=== PATIENT | male | born 1975 | race Caucasian/White ===

== ENCOUNTER 2017-09-05 07:30 | Emergency (ER) | payer OTHER ==
[~2017-09-05] VITALS: Ht 182.9 cm; Wt 90.7 kg
[~2017-09-05 07:30] MED LIST: CEPH500 PO
== END 2017-09-05 09:23 | disposition home or self-care (01) ==
LOC: ER 07:30
DX: R07.81 Pleurodynia (principal); F17.200 Nicotine dependence, unspecified, uncomplicated; Z88.8 Allergy status to other drugs, medicaments and biological substances; W19.XXXA Unspecified fall, initial encounter
CPT/HCPCS: 71046; 96372; 99283; J1885

== ENCOUNTER 2018-08-26 19:09 | Emergency (ER) | payer OTHER ==
[~2018-08-26] VITALS: Ht 182.9 cm; Wt 88.5 kg
[2018-08-26] MEDS ORDERED: Norco 5-325 Ta1 EACH PO (20:49)
[2018-08-26] MEDS ORDERED: CRUTCH4 XX (20:49)
== END 2018-08-26 20:52 | disposition home or self-care (01) ==
LOC: ER 19:09
DX: S76.112A Strain of left quadriceps muscle, fascia and tendon, initial encounter (principal); F17.210 Nicotine dependence, cigarettes, uncomplicated; W22.8XXA Striking against or struck by other objects, initial encounter
CPT/HCPCS: 29505; 73564; 99283-25

== ENCOUNTER 2020-08-01 15:12 | Inpatient (IN) | payer OTHER ==
[~2020-08-01] VITALS: Ht 182.9 cm; Wt 91.4 kg
[~2020-08-01 15:12] MED LIST changes: +CRUTCH4 XX; +Norco 5-325 Ta1 EACH PO
[2020-08-01 15:34] LABS: BASOPHILS ABSOLUTE AUTO 0.06 K/mm3 (0.00-0.23); BASOPHILS PERCENT AUTO 1 % (0-2); EOSINOPHILS ABSOLUTE AUTO 0.02 K/mm3 (0.00-0.68); EOSINOPHILS PERCENT AUTO 0 % (0-6); Hemoglobin 17.3 g/dL (13.5-17.5); IMMATURE GRAN ABSOLUTE AUTO 0.03 K/mm3 (0.00-0.10); IMMATURE GRAN PERCENT AUTO 0 % (0-1); LYMPHOCYTES ABSOLUTE AUTO 0.69 K/mm3 (0.84-5.20); LYMPHOCYTES PERCENT AUTO 5 % (21-46); MONOCYTES ABSOLUTE AUTO 0.48 K/mm3 (0.16-1.47); MONOCYTES PERCENT AUTO 4 % (4-13); Mean Corpuscular HGB 30.3 pg (26.0-34.0); Mean Corpuscular HGB Conc 33.9 g/dL (31.5-36.5); Mean Corpuscular Volume 89 fL (80-100); Mean Platelet Volume 9.2 fL (9.1-12.4); NEUTROPHILS PERCENT AUTO 90 % (41-73); Platelet Count 217 K/mm3 (150-400); RDW Coefficient Variation 12.6 % (11.7-14.2); RDW Standard Deviation 41.4 fL (35.1-46.3); Red Blood Cell Count 5.71 M/mm3 (4.30-5.90); White Blood Cell Count 12.88 K/mm3 (4.00-11.30)
[2020-08-01 15:55] LABS: Alanine Aminotransfer (ALT/SGP 21 U/L (12-78); Albumin, Blood 3.7 g/dL (3.4-5.0); Albumin/Globulin Ratio 0.9 (0.8-1.8); Alk Phos 96 U/L (50-136); Anion Gap 5 mmol/L (6-16); Aspartate Aminotrans (AST/SGOT 23 U/L (12-37); Bilirubin, Total 0.8 mg/dL (0.1-1.0); Blood Urea Nitrogen 7 mg/dL (8-24); CO2, Blood 24 mmol/L (21-32); Chloride, Blood 106 mmol/L (98-108); Creatinine, Blood 0.78 mg/dL (0.60-1.20); Globulin, Blood 3.9 g/dL (2.2-4.0); Glomerular Filtration Rate >60 (60-); Glucose, Blood 104 mg/dL (70-99); Potassium, Blood 4.1 mmol/L (3.5-5.5); Sodium, Blood 135 mmol/L (136-145); Total Protein, Blood 7.6 g/dL (6.4-8.2)
[2020-08-01 18:18] LABS: Influenza A, PCR Negative (NEGATIVE); Influenza B, PCR Negative (NEGATIVE); Resp Syncytial Virus, PCR Negative (NEGATIVE); SARS-Cov-2 (COVID-19) PCR, MMC Negative (NEGATIVE)
[2020-08-02 04:37] LABS: BASOPHILS ABSOLUTE AUTO 0.03 K/mm3 (0.00-0.23); BASOPHILS PERCENT AUTO 0 % (0-2); EOSINOPHILS PERCENT AUTO 0 % (0-6); Hematocrit 46.8 % (37.0-53.0); Hemoglobin 15.7 g/dL (13.5-17.5); IMMATURE GRAN ABSOLUTE AUTO 0.05 K/mm3 (0.00-0.10); IMMATURE GRAN PERCENT AUTO 0 % (0-1); LYMPHOCYTES ABSOLUTE AUTO 0.64 K/mm3 (0.84-5.20); LYMPHOCYTES PERCENT AUTO 5 % (21-46); MONOCYTES PERCENT AUTO 2 % (4-13); Mean Corpuscular HGB 29.8 pg (26.0-34.0); Mean Corpuscular HGB Conc 33.5 g/dL (31.5-36.5); Mean Corpuscular Volume 89 fL (80-100); Mean Platelet Volume 9.9 fL (9.1-12.4); NEUTROPHILS ABSOLUTE AUTO 12.67 K/mm3 (1.96-9.15); NEUTROPHILS PERCENT AUTO 93 % (41-73); Platelet Count 195 K/mm3 (150-400); RDW Coefficient Variation 12.9 % (11.7-14.2); RDW Standard Deviation 42.3 fL (35.1-46.3); Red Blood Cell Count 5.27 M/mm3 (4.30-5.90); White Blood Cell Count 13.69 K/mm3 (4.00-11.30)
[2020-08-02 04:55] LABS: Alanine Aminotransfer (ALT/SGP 17 U/L (12-78); Albumin/Globulin Ratio 0.8 (0.8-1.8); Alk Phos 65 U/L (50-136); Anion Gap 7 mmol/L (6-16); Aspartate Aminotrans (AST/SGOT 15 U/L (12-37); Bilirubin, Total 0.8 mg/dL (0.1-1.0); Blood Urea Nitrogen 9 mg/dL (8-24); Bun/Creatinine Ratio 11.3 (12.0-20.0); CO2, Blood 24 mmol/L (21-32); Calcium, Blood 8.2 mg/dL (8.5-10.1); Chloride, Blood 107 mmol/L (98-108); Globulin, Blood 3.6 g/dL (2.2-4.0); Glomerular Filtration Rate >60 (60-); Glucose, Blood 126 mg/dL (70-99); Potassium, Blood 3.7 mmol/L (3.5-5.5); Sodium, Blood 138 mmol/L (136-145); Total Protein, Blood 6.6 g/dL (6.4-8.2)
--- NOTE | 2020-08-02 05:32 | NUR ---
SHIFT SUMMARY S/P APPENDICITIS, A/O X4, VSS, PAIN CONTROLLED VIA DILAUDID LASER OPERATOR, NPO AT ADMISSION, DENIES N/V, VOIDING WELL W/ BEDSIDE URINAL. CALL LIGHT IN REACH, WILL CONTINUE TO MONITOR AND REPORT TO ONCOMING DAY RN.
--- NOTE | 2020-08-02 07:40 | NUR ---
pt resting wakes to verbal stimuli pt reports pain lower left abd 4/10 winces with any movement in the bed stated that he had been having some nausea but it was better
--- NOTE | 2020-08-02 09:58 | NUR ---
dr burr by to see pt ok to adv to cl diet if skyler
--- NOTE | 2020-08-02 12:05 | NUR ---
pt has alisha ballesteros for lunch told pt to go slow and to call if any nausea and to stop eating if he gets pain
--- NOTE | 2020-08-02 14:12 | NUR ---
pt had small amt of jello and h20 only
--- NOTE | 2020-08-02 17:26 | NUR ---
PT RESTING WAKES TO VERBAL STIMULI MEDS GIVEN SCHED PT JAROCHO GIVEN A JELLO
[2020-08-03 06:12] LABS: BASOPHILS ABSOLUTE AUTO 0.03 K/mm3 (0.00-0.23); BASOPHILS PERCENT AUTO 0 % (0-2); EOSINOPHILS ABSOLUTE AUTO 0.01 K/mm3 (0.00-0.68); EOSINOPHILS PERCENT AUTO 0 % (0-6); Hematocrit 45.3 % (37.0-53.0); Hemoglobin 15.2 g/dL (13.5-17.5); IMMATURE GRAN ABSOLUTE AUTO 0.12 K/mm3 (0.00-0.10); IMMATURE GRAN PERCENT AUTO 1 % (0-1); LYMPHOCYTES ABSOLUTE AUTO 0.65 K/mm3 (0.84-5.20); LYMPHOCYTES PERCENT AUTO 5 % (21-46); MONOCYTES ABSOLUTE AUTO 0.38 K/mm3 (0.16-1.47); MONOCYTES PERCENT AUTO 3 % (4-13); Mean Corpuscular HGB 29.9 pg (26.0-34.0); Mean Corpuscular HGB Conc 33.6 g/dL (31.5-36.5); Mean Corpuscular Volume 89 fL (80-100); Mean Platelet Volume 10.2 fL (9.1-12.4); NEUTROPHILS ABSOLUTE AUTO 13.09 K/mm3 (1.96-9.15); NEUTROPHILS PERCENT AUTO 92 % (41-73); Platelet Count 187 K/mm3 (150-400); RDW Coefficient Variation 12.9 % (11.7-14.2); RDW Standard Deviation 42.3 fL (35.1-46.3); Red Blood Cell Count 5.08 M/mm3 (4.30-5.90); White Blood Cell Count 14.28 K/mm3 (4.00-11.30)
--- NOTE | 2020-08-03 06:16 | NUR ---
SHIFT SUMMARY S/P PERFERATED SIG COLON, A/O X4, VSS, TOLERATING CLEAR FLUIDS AND SMALL AMOUNTS OF JELLO W/ INTERMITTENT NAUSEA, PAIN CONTROLLED W/ DILAUDID STAR ROUTE MAIL DRIVER, VOIDING WELL W/ BEDSIDE URINAL, CURRENTLY ON Q6 ABX TX PENDING POSSIBLE SURGERY TO BE DETERMINED BY SURGEON RECOMMENDATION. CALL LIGHT IN REACH, WILL CONTINUE TO MONITOR AND REPORT TO ONCOMING DAY RN.
[2020-08-03 06:42] LABS: Anion Gap 7 mmol/L (6-16); Blood Urea Nitrogen 12 mg/dL (8-24); Bun/Creatinine Ratio 14.3 (12.0-20.0); CO2, Blood 26 mmol/L (21-32); Calcium, Blood 8.5 mg/dL (8.5-10.1); Chloride, Blood 103 mmol/L (98-108); Creatinine, Blood 0.84 mg/dL (0.60-1.20); Glomerular Filtration Rate >60 (60-); Glucose, Blood 119 mg/dL (70-99); Potassium, Blood 3.8 mmol/L (3.5-5.5); Sodium, Blood 136 mmol/L (136-145)
--- NOTE | 2020-08-04 04:11 | NUR ---
SHIFT SUMMARY PT RESTED WELL T/O NIGHT. AAOX4. DISCOMFORT CONTROLLED WITH DILAUDID VASCULAR TECHNOLOGIST SONOGRAPHER. MILD NAUSEA T/O NIGHT, PT REFUSING NEED OF MEDICATION, NO EMESIS. BTX4 HYPERACTIVE THIS SHIFT WITH PT REPORTING "STOMACH RUMBLING," DENIES FLATUS OR BM. IVF + ABX PER ORDERS. TOLERATING SIPS CLEARS + ICE CHIPS. MODERATE AMOUNT DARK YELLOW URINE. PT CURRENTLY RESTING IN BED WITH CALL LIGHT IN REACH.
[2020-08-04 05:28] LABS: BASOPHILS ABSOLUTE AUTO 0.01 K/mm3 (0.00-0.23); BASOPHILS PERCENT AUTO 0 % (0-2); EOSINOPHILS PERCENT AUTO 0 % (0-6); Hematocrit 42.7 % (37.0-53.0); Hemoglobin 14.4 g/dL (13.5-17.5); IMMATURE GRAN ABSOLUTE AUTO 0.13 K/mm3 (0.00-0.10); IMMATURE GRAN PERCENT AUTO 1 % (0-1); LYMPHOCYTES ABSOLUTE AUTO 0.84 K/mm3 (0.84-5.20); LYMPHOCYTES PERCENT AUTO 6 % (21-46); MONOCYTES ABSOLUTE AUTO 0.48 K/mm3 (0.16-1.47); MONOCYTES PERCENT AUTO 4 % (4-13); Mean Corpuscular HGB 30.1 pg (26.0-34.0); Mean Corpuscular HGB Conc 33.7 g/dL (31.5-36.5); Mean Corpuscular Volume 89 fL (80-100); Mean Platelet Volume 9.6 fL (9.1-12.4); NEUTROPHILS ABSOLUTE AUTO 11.79 K/mm3 (1.96-9.15); NEUTROPHILS PERCENT AUTO 89 % (41-73); Platelet Count 157 K/mm3 (150-400); RDW Coefficient Variation 12.7 % (11.7-14.2); Red Blood Cell Count 4.78 M/mm3 (4.30-5.90); White Blood Cell Count 13.25 K/mm3 (4.00-11.30)
--- NOTE | 2020-08-04 08:28 | NUR ---
ASSESSMENT PT WITH INCREASED PAIN RLQ THIS AM, INCREASED ABDOMINAL DISTENTION FROM YESTERDAY AM ASSESSMENT. PT RATES PAIN 7/10, IS USING JUKEBOX OPERATOR AND DENIES NEED FOR RESCUE DOSE IVP DILAUDID. BOWEL TONES HYPOACTIVE AT TIME OF ASSESSMENT ALTHOUGH PT STATES THAT T/O NIGHT HE WAS FEELING "RUMBLING", DENIES FLATUS OR BM. DENIES N/V AT THIS TIME, PT NPO. CONTINUES TO BE HYPERTENSIVE, DENIES HX OF HTN.
--- NOTE | 2020-08-05 05:48 | NUR ---
SHIFT SUMMARY PT RESTED INFREQUENTLY T/O NIGHT. AAOX4. SMALL AMOUNT ICE CHIPS THIS SHIFT. DISCOMFORT CONTROLLED WITH DILAUDID HOME HEALTH OUTREACH COORDINATOR + 1MG IV DILAUDID PUSH X1 FOR BREAKTHROUGH. NAUSEA CONTROLLED WITH X1 ZOFRAN, NO EMESIS. IVF PER ORDERS. DARK/SAL URINE NOTED. PT CURRENTLY RESTING IN BED WITH CALL LIGHT IN REACH.
[2020-08-05 11:27] LABS: Prothrombin Time Results 10.7 Sec (9.7-11.5)
--- NOTE | 2020-08-05 15:19 | NUR ---
PT AT CT.
--- NOTE | 2020-08-05 17:30 | NUR ---
SUMMARY PT HAD CT GUIDED DRAIN PLACEMENT ON L ABD, TOLERATED FAIRLY WELL, HAD SOME NAUSEA TODAY, REPORTS HAVING ADEQUATE PAIN CONTROL WITH WINDOW SHADE RING COVERER, SLEPT OFF AND ON MOST OF THE DAY, NO ACUTE CHANGES THIS SHIFT.
--- NOTE | 2020-08-06 06:44 | NUR ---
POD 1 S/P CT GUIDED DRAIN PLACEMENT. PT VSS, BP REMAINS ELEVATED 170'S-100'S. PT DENIED CP/PRESSURE. PT REP PAIN MGD W/SENIOR SOFTWARE QUALITY ENGINEER, STATES LESS PAIN SINCE DRAIN PLACED. URESIL DRAIN W/CLEMONS DRNG. PT CONT TO C/O NAUSEA, MED W/ZOFRAN W/REP RELIEF, NO EMESIS THIS SHIFT. PT REP NO FLATUS. PT UP INDEP IN ROOM, IVF AND ABX CONT PER ORDERS.
[2020-08-06 07:15] LABS: BASOPHILS ABSOLUTE AUTO 0.03 K/mm3 (0.00-0.23); BASOPHILS PERCENT AUTO 0 % (0-2); EOSINOPHILS ABSOLUTE AUTO 0.05 K/mm3 (0.00-0.68); EOSINOPHILS PERCENT AUTO 1 % (0-6); Hematocrit 42.9 % (37.0-53.0); Hemoglobin 14.6 g/dL (13.5-17.5); IMMATURE GRAN ABSOLUTE AUTO 0.06 K/mm3 (0.00-0.10); IMMATURE GRAN PERCENT AUTO 1 % (0-1); LYMPHOCYTES ABSOLUTE AUTO 0.94 K/mm3 (0.84-5.20); LYMPHOCYTES PERCENT AUTO 9 % (21-46); MONOCYTES PERCENT AUTO 8 % (4-13); Mean Corpuscular Volume 88 fL (80-100); Mean Platelet Volume 9.5 fL (9.1-12.4); NEUTROPHILS ABSOLUTE AUTO 8.41 K/mm3 (1.96-9.15); NEUTROPHILS PERCENT AUTO 82 % (41-73); Platelet Count 189 K/mm3 (150-400); RDW Coefficient Variation 12.7 % (11.7-14.2); RDW Standard Deviation 41.1 fL (35.1-46.3); Red Blood Cell Count 4.87 M/mm3 (4.30-5.90); White Blood Cell Count 10.29 K/mm3 (4.00-11.30)
--- NOTE | 2020-08-06 12:17 | NUR ---
DR. PARIKH HERE TO SEE PT, NOTIFIED REGARDING PT'S HIGH BLOOD PRESSURES, HOSPITALIST TO CONSULT, PT NOW OOB TO CHAIR, REPORTS TOLERATING CLEAR LIQUIDS BETTER TODAY.
[2020-08-06 16:29] LABS: Anion Gap 6 mmol/L (6-16); Blood Urea Nitrogen 9 mg/dL (8-24); Bun/Creatinine Ratio 14.2 (12.0-20.0); CO2, Blood 27 mmol/L (21-32); Chloride, Blood 103 mmol/L (98-108); Creatinine, Blood 0.63 mg/dL (0.60-1.20); Glomerular Filtration Rate >60 (60-); Glucose, Blood 114 mg/dL (70-99); Magnesium, Blood 2.3 mg/dL (1.6-2.4); Potassium, Blood 3.3 mmol/L (3.5-5.5); Sodium, Blood 136 mmol/L (136-145)
[2020-08-06 17:20] LABS: Source, Urine Clean Catch
[2020-08-06 17:24] LABS: Appearance, Urine Cloudy (Clear); Bilirubin, Urine Neg (Neg); Blood, Urine Neg (Neg); Color, Urine Yellow (P-Yellow); Glucose Qualitative, Urine Neg (Neg); Ketones, Urine Neg (Neg); Leukocyte Esterase, Urine Neg (Neg); Nitrite, Urine Neg (Neg); Protein, Urine 1+ (Neg); Urobilinogen, Urine NORM (Normal)
--- NOTE | 2020-08-06 17:32 | NUR ---
SUMMARY REPORTS FEELING "BETTER" TODAY, STARTED SMALL AMOUNTS OF FULL LIQUIDS, TOLERATED FAIRLY WELL, DENIES ANY NAUSEA, OOB TO CHAIR AND TO AMBULATE IN ROOM, URESIL DRAIN CONT. TO HAVE CLEMONS DRAINAGE, CONT. TO HAVE HIGH BP, STARTED ON HYDRALAZINE PO BY ELVIRA ENRIQUEZ, NO OTHER CHANGES THIS SHIFT.
[2020-08-06 17:43] LABS: Amorphous Heavy (0-Heavy); Bacteria Rare /hpf; Red Blood Cells, Urine 0-2 /hpf (0-2); Squamous Epithelial Cells Not Seen /hpf (Few); White Blood Cells, Urine 0-2 /hpf (0-5)
--- NOTE | 2020-08-07 06:33 | NUR ---
PT HAD NO ACUTE CHANGES T/O NIGHT. BP ELEVATED THIS AM, PRN HYDRALAZINE GIVEN PER EMAR. PT DENIED CP/PRESSURE/SOB. URESIL DRAINED APPX 10ML THICK BROWN DRNG. ABD REMIANS FIRM/DISTENDED, BT HYPO. PT REP ABD DOES FEEL A LITTLE LESS DISTENDED TO HIM. PT REP PASSING FLATUS, REP LESS NAUSEA THIS SHIFT, ZOFRAN GIVEN X1 W/REP RELIEF. PT REP PAIN JUAN DANIEL W/CATTLE INSPECTOR. PT ENC TO AMBULATE OUTSIDE OF ROOM
--- NOTE | 2020-08-07 18:24 | NUR ---
SHIFT SUMMARY PT HAS DONE WELL THIS SHIFT. DIET ADVANCED, PT TOOK SMALL AMOUNTS PO T/O SHIFT WITH NO C/O N/V. PAIN CONTINUES TO BE MANAGED WITH DILAUDID TOBACCO WRAPPING MACHINE TENDER. PT UP TO SHOWER. DRAIN WITH SMALL AMT PURULENT DRAINAGE THIS SHIFT. PLAN TO CONTINUE IV ABX AT THIS TIME.
[2020-08-08 04:32] LABS: BASOPHILS ABSOLUTE AUTO 0.05 K/mm3 (0.00-0.23); BASOPHILS PERCENT AUTO 1 % (0-2); EOSINOPHILS ABSOLUTE AUTO 0.19 K/mm3 (0.00-0.68); EOSINOPHILS PERCENT AUTO 2 % (0-6); Hematocrit 42.3 % (37.0-53.0); Hemoglobin 14.5 g/dL (13.5-17.5); IMMATURE GRAN ABSOLUTE AUTO 0.13 K/mm3 (0.00-0.10); IMMATURE GRAN PERCENT AUTO 2 % (0-1); LYMPHOCYTES ABSOLUTE AUTO 1.34 K/mm3 (0.84-5.20); LYMPHOCYTES PERCENT AUTO 15 % (21-46); MONOCYTES ABSOLUTE AUTO 0.86 K/mm3 (0.16-1.47); MONOCYTES PERCENT AUTO 10 % (4-13); Mean Corpuscular HGB 29.4 pg (26.0-34.0); Mean Corpuscular HGB Conc 34.3 g/dL (31.5-36.5); Mean Corpuscular Volume 86 fL (80-100); Mean Platelet Volume 9.6 fL (9.1-12.4); NEUTROPHILS ABSOLUTE AUTO 6.17 K/mm3 (1.96-9.15); NEUTROPHILS PERCENT AUTO 71 % (41-73); Platelet Count 245 K/mm3 (150-400); RDW Coefficient Variation 12.5 % (11.7-14.2); RDW Standard Deviation 39.2 fL (35.1-46.3); Red Blood Cell Count 4.94 M/mm3 (4.30-5.90); White Blood Cell Count 8.74 K/mm3 (4.00-11.30)
[2020-08-08 04:46] LABS: Albumin, Blood 2.1 g/dL (3.4-5.0); Anion Gap 7 mmol/L (6-16); Blood Urea Nitrogen 6 mg/dL (8-24); Bun/Creatinine Ratio 8.8 (12.0-20.0); CO2, Blood 26 mmol/L (21-32); Calcium, Blood 8.1 mg/dL (8.5-10.1); Chloride, Blood 101 mmol/L (98-108); Creatinine, Blood 0.68 mg/dL (0.60-1.20); Glomerular Filtration Rate >60 (60-); Glucose, Blood 91 mg/dL (70-99); Phosphorus, Blood 3.6 mg/dL (2.5-4.9); Potassium, Blood 3.4 mmol/L (3.5-5.5); Sodium, Blood 134 mmol/L (136-145)
--- NOTE | 2020-08-08 06:34 | NUR ---
SHIFT SUMMARY POD#3 DRAIN PLACEMENT. AAOX4. DISCOMFORT CONTROLLED WITH DILAUDID BEHAVIOR INTERVENTIONIST. NO NAUSEA/EMESIS. DRAIN WITH 20cc DARK LIQUID BROWN OUT. IV TKO + ABX. HTN NOTED THIS SHIFT, APRESOLINE GIVEN PER ORDERS. PT RESTED WELL T/O NIGHT WITH CALL LIGHT IN REACH. ENCOUAGE AMBULATION TODAY.
[2020-08-08] MEDS ORDERED: AMOCLA875 PO (12:17)
[2020-08-08] MEDS ORDERED: HYDR1TAB94 PO (12:18)
[2020-08-08] MEDS ORDERED: AMLO10 PO (13:04)
[2020-08-08] MEDS ORDERED: HYDCHL25 PO (13:04)
--- NOTE | 2020-08-08 16:06 | NUR ---
DISCHARGED TO HOME WITH DRAIN IN [place]. PT STATES HE HAS NO CONCERNS REGARDING EMPTYING DRAIN AND RECORDING I/O
== END 2020-08-08 16:08 | disposition home or self-care (01) | DRG 392 ==
LOC: ER 15:12 → ERHOLD 20:47 → SURS 20:47
PROVIDERS: Emergency Medicine; Internal Medicine; Nurse Practitioner Acute Care; ADMIT Surgery
PROC: 0W9J30Z Drainage of Pelvic Cavity with Drainage Device, Percutaneous Approach (ICD-10-PCS; principal; 2020-08-05)
DX: K57.20 Diverticulitis of large intestine with perforation and abscess without bleeding (principal); K56.7 Ileus, unspecified; I10 Essential (primary) hypertension; F17.210 Nicotine dependence, cigarettes, uncomplicated; E87.6 Hypokalemia; Z20.822 Contact with and (suspected) exposure to COVID-19
CPT/HCPCS: 0241U; 36415; 49406; 74177; 80048; 80053; 80069; 81001; 83605; 83690; 83735; 83880; 85025; 85610; 85730; 87070; 87075; 87205; 93005; 93010; 96361; 96365-59; 96366; 96375; 96376; 99285-25; A9270; J1170; J1650; J2405; J2543; J7030; J7050; J7120; Q9967

== ENCOUNTER 2020-08-11 22:11 | Inpatient (IN) | payer OTHER ==
[~2020-08-11] VITALS: Ht 182.9 cm; Wt 92.5 kg
[~2020-08-11 22:11] MED LIST changes: +AMLO10 PO; +AMOCLA875 PO; +HYDCHL25 PO; +HYDR1TAB94 PO
[2020-08-11 22:59] LABS: BASOPHILS ABSOLUTE AUTO 0.11 K/mm3 (0.00-0.23); BASOPHILS PERCENT AUTO 1 % (0-2); EOSINOPHILS ABSOLUTE AUTO 0.17 K/mm3 (0.00-0.68); EOSINOPHILS PERCENT AUTO 1 % (0-6); Hematocrit 33.1 % (37.0-53.0); Hemoglobin 11.1 g/dL (13.5-17.5); IMMATURE GRAN ABSOLUTE AUTO 0.35 K/mm3 (0.00-0.10); IMMATURE GRAN PERCENT AUTO 2 % (0-1); LYMPHOCYTES ABSOLUTE AUTO 1.89 K/mm3 (0.84-5.20); LYMPHOCYTES PERCENT AUTO 10 % (21-46); MONOCYTES ABSOLUTE AUTO 0.94 K/mm3 (0.16-1.47); MONOCYTES PERCENT AUTO 5 % (4-13); Mean Corpuscular HGB 29.9 pg (26.0-34.0); Mean Corpuscular HGB Conc 33.5 g/dL (31.5-36.5); Mean Corpuscular Volume 89 fL (80-100); Mean Platelet Volume 9.6 fL (9.1-12.4); NEUTROPHILS ABSOLUTE AUTO 15.28 K/mm3 (1.96-9.15); NEUTROPHILS PERCENT AUTO 82 % (41-73); Platelet Count 503 K/mm3 (150-400); RDW Coefficient Variation 12.8 % (11.7-14.2); RDW Standard Deviation 42.2 fL (35.1-46.3); Red Blood Cell Count 3.71 M/mm3 (4.30-5.90); White Blood Cell Count 18.74 K/mm3 (4.00-11.30)
[2020-08-11 23:12] LABS: Alanine Aminotransfer (ALT/SGP 48 U/L (12-78); Albumin, Blood 2.6 g/dL (3.4-5.0); Albumin/Globulin Ratio 0.7 (0.8-1.8); Alk Phos 68 U/L (50-136); Anion Gap 9 mmol/L (6-16); Aspartate Aminotrans (AST/SGOT 23 U/L (12-37); Bilirubin, Total 0.6 mg/dL (0.1-1.0); Blood Urea Nitrogen 7 mg/dL (8-24); Bun/Creatinine Ratio 8.7 (12.0-20.0); CO2, Blood 24 mmol/L (21-32); Calcium, Blood 7.8 mg/dL (8.5-10.1); Chloride, Blood 102 mmol/L (98-108); Creatinine, Blood 0.81 mg/dL (0.60-1.20); Globulin, Blood 3.9 g/dL (2.2-4.0); Glomerular Filtration Rate >60 (60-); Glucose, Blood 185 mg/dL (70-99); Sodium, Blood 135 mmol/L (136-145); Total Protein, Blood 6.5 g/dL (6.4-8.2)
[2020-08-12 00:18] LABS: International Normalized Ratio 1.01; Prothrombin Time Results 10.8 Sec (9.7-11.5)
[2020-08-12 00:35] LABS: Calcium, Ionized (POC) 1.01 mmol/L (1.10-1.46); Chloride (POC) 101 mmol/L (98-108); Creatinine (POC) 0.8 mg/dL (0.8-1.3); Glucose (ISTAT POC) 159 mg/dL (70-99); Hemoglobin (POC) 8.2 g/dL (13.5-17.5); Potassium (POC) 4.2 mmol/L (3.5-5.5); Sodium (POC) 133 mmol/L (135-148); Total CO2 (POC) 19 mmol/L (21-32)
[2020-08-12 00:36] LABS: Hematocrit 25.6 % (37.0-53.0); Hemoglobin 8.3 g/dL (13.5-17.5)
[2020-08-12 03:01] LABS: Hematocrit 27.2 % (37.0-53.0); Mean Platelet Volume 9.1 fL (9.1-12.4); Platelet Count 258 K/mm3 (150-400)
[2020-08-12 03:12] LABS: Calcium, Blood 6.3 mg/dL (8.5-10.1); Magnesium, Blood 1.6 mg/dL (1.6-2.4)
[2020-08-12 03:17] LABS: International Normalized Ratio 1.11; Prothrombin Time Results 11.8 Sec (9.7-11.5)
[2020-08-12 05:26] LABS: BASOPHILS ABSOLUTE AUTO 0.11 K/mm3 (0.00-0.23); BASOPHILS PERCENT AUTO 0 % (0-2); EOSINOPHILS ABSOLUTE AUTO 0.01 K/mm3 (0.00-0.68); EOSINOPHILS PERCENT AUTO 0 % (0-6); Hematocrit 29.5 % (37.0-53.0); Hemoglobin 10.2 g/dL (13.5-17.5); IMMATURE GRAN ABSOLUTE AUTO 0.85 K/mm3 (0.00-0.10); IMMATURE GRAN PERCENT AUTO 3 % (0-1); LYMPHOCYTES ABSOLUTE AUTO 1.44 K/mm3 (0.84-5.20); LYMPHOCYTES PERCENT AUTO 5 % (21-46); MONOCYTES ABSOLUTE AUTO 1.34 K/mm3 (0.16-1.47); MONOCYTES PERCENT AUTO 5 % (4-13); Mean Corpuscular HGB 30.4 pg (26.0-34.0); Mean Corpuscular HGB Conc 34.6 g/dL (31.5-36.5); Mean Corpuscular Volume 88 fL (80-100); Mean Platelet Volume 9.3 fL (9.1-12.4); NEUTROPHILS ABSOLUTE AUTO 23.89 K/mm3 (1.96-9.15); NEUTROPHILS PERCENT AUTO 87 % (41-73); Platelet Count 314 K/mm3 (150-400); RDW Coefficient Variation 13.8 % (11.7-14.2); RDW Standard Deviation 44.5 fL (35.1-46.3); Red Blood Cell Count 3.35 M/mm3 (4.30-5.90); White Blood Cell Count 27.64 K/mm3 (4.00-11.30)
--- NOTE | 2020-08-12 05:33 | NUR ---
OR PLACED L RADIAL CENTRAL LINE. SPO2 ON L POINTER FINGER. GOOD WAVE FORM. FINGERS ARE WARM AND CAP REFILL <3 SEC
--- NOTE | 2020-08-12 05:34 | NUR ---
PT TO ICU 13 FROM OR. THIS NURSE IN OR WITH PT FOR SPLENECTOMY. PT EBL IS 5L. RECEIVED 2100MLS LR, 2L NS, 3U PRBCS. ST IN THE 110S, SBP STABLE IN THE 120S. PT IS AROUSABLE TO VERBAL STIMULI AND IS A&O. PT HAS A MIDLINE ABD INCISION WITH KIANA DRESSING. A ROBERTA DRAIN TO RQ DRAINING MOD AMT OF BLOOD. DRAIN TO LLQ DRAINING DARK GREEN/BROWN SUBSTANCE (PT WAS RECENTLY IN ED WITH DIVERTICULITIS ULCER. DRAIN PLACED AT THAT ADMISSION). PT HAS NGT TO LIS. 2 PIV IN BILAT ACS. L RADIAL ART LINE PLACED IN OR- NOT SUTURED IN. ZEROED ONCE TO ICU RM. WILL PASS REPORT TO ONCOMING RN
[2020-08-12 05:55] LABS: Alanine Aminotransfer (ALT/SGP 39 U/L (12-78); Albumin/Globulin Ratio 0.7 (0.8-1.8); Alk Phos 52 U/L (50-136); Anion Gap 8 mmol/L (6-16); Aspartate Aminotrans (AST/SGOT 25 U/L (12-37); Bilirubin, Total 1.9 mg/dL (0.1-1.0); Blood Urea Nitrogen 8 mg/dL (8-24); Bun/Creatinine Ratio 12.8 (12.0-20.0); CO2, Blood 22 mmol/L (21-32); Calcium, Blood 6.7 mg/dL (8.5-10.1); Chloride, Blood 108 mmol/L (98-108); Creatinine, Blood 0.63 mg/dL (0.60-1.20); Glomerular Filtration Rate >60 (60-); Glucose, Blood 184 mg/dL (70-99); Potassium, Blood 4.6 mmol/L (3.5-5.5); Sodium, Blood 138 mmol/L (136-145)
[2020-08-12 06:01] LABS: Fibrinogen 326 mg/dL (170-430)
--- NOTE | 2020-08-12 08:20 | NUR ---
CARE ASSUMED CARE AND REPORT ASSUMED FROM IRINEO JUAREZ. PT SLEEPING BUT EASILY AROUSES WHEN SPOKEN TO. HE IS DUSKY APPEARING. A/O X 3, FLAT AFFECT, CALM AND COOPERATIVE. SINUSTACH, HR 110-120. BP WNL. ART LINE IN L WRIST, NO SUTURES BUT IS SECURED WITH TAPE. GOOD WAVE FORM AND PLETH. AFEBRILE. LUNG SOUNDS CLEAR THROUGHOUT; SPO2 97% ON RA. NGT SECURED AND ATTACHED TO LIWS; GREEN, BILIOUS OUTPUT. ROBERTA DRAIN SECURED TO R SIDE, SEROSANGINOUS OUTPUT. CONSTAVAC ATTACHED AND SECURED TO LLQ ABDOMEN; BROWN OUTPUT. DILAUDID CLINIC ADMINISTRATOR; PT AWARE OF HOW TO USE BUTTON. DILAUDID DOSE IS 0.3 MG. MIV NS INFUSING AT 125 ML/HR PER ORDER. ZOFRAN GIVEN FOR NAUSEA. WILL CONTINUE TO MONITOR.
[2020-08-12 08:50] LABS: Percent Saturation 90.3 % (20.0-50.0)
[2020-08-12 09:48] LABS: Hematocrit 28.6 % (37.0-53.0)
[2020-08-12 10:09] LABS: Alanine Aminotransfer (ALT/SGP 37 U/L (12-78); Albumin/Globulin Ratio 0.7 (0.8-1.8); Alk Phos 50 U/L (50-136); Anion Gap 7 mmol/L (6-16); Aspartate Aminotrans (AST/SGOT 20 U/L (12-37); Blood Urea Nitrogen 8 mg/dL (8-24); Bun/Creatinine Ratio 12.5 (12.0-20.0); CO2, Blood 23 mmol/L (21-32); Calcium, Blood 7.1 mg/dL (8.5-10.1); Chloride, Blood 108 mmol/L (98-108); Creatinine, Blood 0.64 mg/dL (0.60-1.20); Glomerular Filtration Rate >60 (60-); Glucose, Blood 164 mg/dL (70-99); Potassium, Blood 4.6 mmol/L (3.5-5.5); Sodium, Blood 138 mmol/L (136-145)
[2020-08-12 10:43] LABS: Source, Urine Catheter
[2020-08-12 11:17] LABS: Appearance, Urine Clear (Clear); Bilirubin, Urine Neg (Neg); Blood, Urine Neg (Neg); Color, Urine Yellow (P-Yellow); Glucose Qualitative, Urine Neg (Neg); Ketones, Urine Neg (Neg); Leukocyte Esterase, Urine Neg (Neg); Nitrite, Urine Neg (Neg); Protein, Urine 1+ (Neg); Specific Gravity, Urine 1.025 (1.003-1.022); Urobilinogen, Urine NORM (Normal)
--- NOTE | 2020-08-12 12:07 | NUR ---
REASSESSMENT PT REMAINS IN BED. C/O PERSISTENT PAIN TO ABDOMEN AND PAIN WITH ANY ADJUSTMENT OF ROBERTA DRAIN. CONTINUING TO USE DILAUDID MOLD MAKING PLASTICS SHEETS SUPERVISOR NEEDED. PT REQUESTING TO SLEEP AT THIS TIME. REFUSING MOVEMENTS IN BED, HE STATES HIS NGT IS UNCOMFORTABLE. NGT ATTACHED TO LIWS. PICOT WOUND VAC REMAINS INTACT AND WORKING PROPERLY. BP WNL. SINUSTACH, HR 110-120. CALL LIGHT WITHIN REACH. AFEBRILE. TOELRATING ICE CHIPS. WILL CONTINUE TO MONITOR.
[2020-08-12 13:58] LABS: Hematocrit 27.6 % (37.0-53.0); Hemoglobin 9.5 g/dL (13.5-17.5)
[2020-08-12 15:37] LABS: Hematocrit 26.5 % (37.0-53.0); Hemoglobin 9.2 g/dL (13.5-17.5); Mean Corpuscular HGB 30.1 pg (26.0-34.0); Mean Corpuscular HGB Conc 34.7 g/dL (31.5-36.5); Mean Corpuscular Volume 87 fL (80-100); Mean Platelet Volume 9.7 fL (9.1-12.4); Platelet Count 367 K/mm3 (150-400); RDW Coefficient Variation 14.6 % (11.7-14.2); Red Blood Cell Count 3.06 M/mm3 (4.30-5.90); White Blood Cell Count 20.99 K/mm3 (4.00-11.30)
--- NOTE | 2020-08-12 17:11 | NUR ---
REASSESSMENT PT COMPLAINS OF PAIN WITH ANY MOVEMENT. SUBTLE TURN COMPLETED TO KEEP PT OFF OF HIP. REMAINS IN SINUSTACH, HR 110-120S. BP WNL. ART LINE WAVEFORM DAMPENED WITH WRIST MOVEMENT; LINE IS VERY POSITIONAL. AFEBRILE. STEELE CATH REMAINS SECURED AND PATENT. ROBERTA DRAINING AND PATENT. L SIDED DRAIN PATENT. PT AWARE OF HOW TO USE CLOTH MEASURER MACHINE. WILL CONTINUE TO MONITOR.
--- NOTE | 2020-08-12 18:50 | NUR ---
SHIFT SUMMARY PT HAS REMAINED ON ORDNANCE EQUIPMENT WORKER GTT ENTIRE SHIFT PRN. REFUSED TURNS THROUGHOUT DAY HE STATES ANY MOVEMENT IS PAINFUL. AFEBRILE DURING SHIFT. ART LINE HAS REMAINED IN PLACE ENTIRE SHIFT; OK TO DC PER MD ARMENDARIZ IT IS POSITIONAL AND NOT PROVIDING ACCURATE READINGS. MIV NS INFUSING AT 150 ML/HR PER ORDER. PT TOLERATING ICE CHIPS WELL. STEELE CATH PATENT; DARK URINE. MIDLINE INCISION CLEAN, DRY AND INTACT WITH WORKING PICOT WOUND VAC. URESIL DRAIN SECURED AND PATENT. ROBERTA DRAIN SECURED AND PATENT. PT CALLS APPROPRIATELY. HAS BEEN DUSKY IN COLOR TO HIS FACE ENTIRE SHIFT. WILL GIVE BEDSIDE, HANDOFF REPORT TO NATALI JUAREZ.
[2020-08-12 21:26] LABS: Hematocrit 23.4 % (37.0-53.0)
--- NOTE | 2020-08-13 01:22 | NUR ---
REPORT RECEIVED FROM LARRY YODER
--- NOTE | 2020-08-13 02:08 | NUR ---
PT REFUSING TURNS AT THIS TIME. STATES HES OK RIGHT NOW
--- NOTE | 2020-08-13 02:29 | NUR ---
REPORT GIVEN TO GAURAV RN NO ACUTE CHANGES THUS FAR. VSS. ON ART GLASS SETTER
[2020-08-13 03:29] LABS: BASOPHILS ABSOLUTE AUTO 0.16 K/mm3 (0.00-0.23); BASOPHILS PERCENT AUTO 1 % (0-2); EOSINOPHILS ABSOLUTE AUTO 0.54 K/mm3 (0.00-0.68); EOSINOPHILS PERCENT AUTO 3 % (0-6); Hematocrit 20.2 % (37.0-53.0); IMMATURE GRAN PERCENT AUTO 1 % (0-1); LYMPHOCYTES ABSOLUTE AUTO 1.99 K/mm3 (0.84-5.20); LYMPHOCYTES PERCENT AUTO 10 % (21-46); MONOCYTES ABSOLUTE AUTO 1.93 K/mm3 (0.16-1.47); MONOCYTES PERCENT AUTO 10 % (4-13); Mean Corpuscular HGB 30.6 pg (26.0-34.0); Mean Corpuscular HGB Conc 34.7 g/dL (31.5-36.5); Mean Corpuscular Volume 88 fL (80-100); NEUTROPHILS ABSOLUTE AUTO 15.15 K/mm3 (1.96-9.15); NEUTROPHILS PERCENT AUTO 76 % (41-73); Platelet Count 351 K/mm3 (150-400); RDW Coefficient Variation 14.5 % (11.7-14.2); RDW Standard Deviation 46.6 fL (35.1-46.3); Red Blood Cell Count 2.29 M/mm3 (4.30-5.90); White Blood Cell Count 19.97 K/mm3 (4.00-11.30)
[2020-08-13 03:47] LABS: Alanine Aminotransfer (ALT/SGP 25 U/L (12-78); Albumin, Blood 1.8 g/dL (3.4-5.0); Albumin/Globulin Ratio 0.6 (0.8-1.8); Alk Phos 49 U/L (50-136); Anion Gap 5 mmol/L (6-16); Aspartate Aminotrans (AST/SGOT 15 U/L (12-37); Bilirubin, Total 0.3 mg/dL (0.1-1.0); Blood Urea Nitrogen 8 mg/dL (8-24); CO2, Blood 27 mmol/L (21-32); Calcium, Blood 7.3 mg/dL (8.5-10.1); Chloride, Blood 110 mmol/L (98-108); Glomerular Filtration Rate >60 (60-); Glucose, Blood 110 mg/dL (70-99); Potassium, Blood 4.2 mmol/L (3.5-5.5); Sodium, Blood 142 mmol/L (136-145); Total Protein, Blood 4.8 g/dL (6.4-8.2)
--- NOTE | 2020-08-13 04:00 | NUR ---
Care Assumed 0230 Care Assumed from LARRY Dubose. Pt is A/O, sitting up in bed eating ice chips. He is Dusky in apperance, calm, and coperative. Sinus Tach, afebrile, HR 110-120, BP WNL, and Spo2 > 95% with 3 L via NC. Lung sounds clear T/O. NGT secured and attached to LIWS. ROBERTA drain secured to righ side, sersanginous ouput. Constavac attached and secured to LLQ, scant brown output. Dilaudid SQL BI DEVELOPER, infusing via right IV. Pt uses button successfully. Pt states nausea, treated per emar with Zofran. Castellanos in place draining to gravity. Call right with in reach.
--- NOTE | 2020-08-13 06:25 | NUR ---
Shift Summary Pt resting in bed. No acute changes since last assessment. Pt remains on 3 L via NC. Attempeted to decrease oxygen and pts spo2 decreases to 90%. Pt denies SOB and nausea. Dr. Loyd called in regards to pts hbg of 7, no new orders recieved. Pt remains on SPRINKLING TRUCK DRIVER, t/o shfit, tolerating well. Pt tolerating ice chips well. Midline incision clear, dry and intact with working PICOT wound VAC. ROBERTA drain secured and patent. Pt continues to appear dusky in the face. Will report to oncoming shift.
--- NOTE | 2020-08-13 08:30 | NUR ---
ASSESSMENT- PT AWAKENS EASILY TO NAME, ALERT, ORIENTED, COOPEATIVE WITH CARES. NO DISTRESS, RESPIRATIONS EASY, UNLABORED. SINUS TACH, BP STABLE. REMOVED OXYGEN-SATURATIONS STABLE ON ROOM AIR. DENIES N/V. TAKING ICE CHIPS. NGT TO LIS WITH GREEN DRAINAGE. NO BOWEL SOUNDS HEARD. UO VIA STEELE-STEELE D/C. MIDLINE DRSG DI WITH KIANA WOUND VAC. RIGHT ROBERTA WITH DDI, SCANT SEROSANG DRAINAGE IN BULB. LEFT DRAIN WITH SCANT DRAINAGE IN BAG. DR. ARMENDARIZ HERE-UPDATED. REPEAT LAB TO CHECK H/H AT NOON, ORDERS FOR TRANSFER. SCDS ON. PIV INTACT NS AT 150 CC/HR, ANTIBIOTIC INFUSING. USING DILAUDID ROLL RECLAIMER-STATES ABLE TO DECREASE PAIN TO LEVEL 4 WHICH IS TOLERABLE TO HIM
--- NOTE | 2020-08-13 09:21 | NUR ---
08/13/20 0921 Indira Mclaughlin VERIFICATIONS: EDIT CHART.
--- NOTE | 2020-08-13 09:44 | NUR ---
BATH DONE, ABLE TO STAND AT BEDSIDE WITH ASSISTANCE, GOOD EFFORT, INSTRUCTED ON C/DB, GOOD RETURN DEMONSTRATION. TOLERATED ACTIVITY.
--- NOTE | 2020-08-13 10:10 | NUR ---
DRAINAGE BAG CHANGED LEFT ABDOMEN PER DR. ARMENDARIZ REQUEST. NO NEW DRAINAGE SEEN
[2020-08-13 12:56] LABS: Hematocrit 19.4 % (37.0-53.0); Hemoglobin 6.5 g/dL (13.5-17.5)
--- NOTE | 2020-08-13 13:02 | NUR ---
REMAINS SINUS TACH 110'S. AWAKE, STATES GOOD PAIN CONTROL WITH BARISTA. NEEDED NASAL CANNULA OXYGEN TO MAINTAIN SATURATIONS WHEN SLEEPING, SATS 95%. DRSGS, DRAINS UNCHANGEED
--- NOTE | 2020-08-13 13:26 | NUR ---
NO S/S BLEEDING. HGB 6.[address] ARMENDARIZ. TALKING ON PHONE NO S/S DISTRESS. CALM, STATES PAIN CONTROLLED. NO N/V. TAKING ICE CHIPS
--- NOTE | 2020-08-13 19:15 | NUR ---
SHIFT SUMMARY PT A&OX4, VSS, TRANSFER FROM ICU APPROX 1400, 1 UNIT BLOOD TRANSFUSED, FOLLOWUP H&H JUST DRAWN VIA LAB. NG TUBE WITH GREEN LIQ 200 MLS OUT; PT INTAKING ICE CHIPS. STEELE REMOVED THIS AM IN ICU; PT VOIDED IN URINAL. PAIN MANAGED WITH ENGINE LATHE SET UP OPERATOR. KIANA WNL, ROBERTA RIGHT ABD, DRAIN L ABD NEW BAG TODAY NO OUTPUT. 2LNC, TCDB & I.S. EDU & ENC Q1H WHILE AWAKE, PT DEMONSTRATED. STAND PIVOT AT BEDSIDE TO GET UP OOB X2. REPORT GIVEN TO NATALI JUAREZ.
[2020-08-13 19:40] LABS: Hematocrit 21.7 % (37.0-53.0); Hemoglobin 7.1 g/dL (13.5-17.5)
[2020-08-14 04:20] LABS: BASOPHILS ABSOLUTE AUTO 0.11 K/mm3 (0.00-0.23); BASOPHILS PERCENT AUTO 1 % (0-2); EOSINOPHILS ABSOLUTE AUTO 0.48 K/mm3 (0.00-0.68); EOSINOPHILS PERCENT AUTO 3 % (0-6); Hematocrit 20.8 % (37.0-53.0); Hemoglobin 6.9 g/dL (13.5-17.5); IMMATURE GRAN ABSOLUTE AUTO 0.15 K/mm3 (0.00-0.10); IMMATURE GRAN PERCENT AUTO 1 % (0-1); LYMPHOCYTES ABSOLUTE AUTO 2.19 K/mm3 (0.84-5.20); LYMPHOCYTES PERCENT AUTO 12 % (21-46); MONOCYTES ABSOLUTE AUTO 1.65 K/mm3 (0.16-1.47); MONOCYTES PERCENT AUTO 9 % (4-13); Mean Corpuscular HGB Conc 33.2 g/dL (31.5-36.5); Mean Corpuscular Volume 90 fL (80-100); Mean Platelet Volume 8.8 fL (9.1-12.4); NEUTROPHILS ABSOLUTE AUTO 13.34 K/mm3 (1.96-9.15); NEUTROPHILS PERCENT AUTO 75 % (41-73); NRBC ABSOLUTE 0.03 K/mm3 (0.00-0.02); NRBC Auto 0.2 /100 WBC (0.0-0.2); Platelet Count 432 K/mm3 (150-400); RDW Coefficient Variation 13.8 % (11.7-14.2); White Blood Cell Count 17.92 K/mm3 (4.00-11.30)
--- NOTE | 2020-08-14 04:21 | NUR ---
SHIFT SUMMARY ADMITTED FOR PERITONITIS. POD1. SPLEENECTOMY PERFORMED. FULL CODE. ROBERTA DRAIN IN PLACE. MIDLINE KIANA DRESSING IN PLACE. NG TUBE IN PLACE. PT IS NPO, ICE CHIPS ONLY. SILVER PLATER PUMP FOR PAIN. IV ANTIBIOTICS ARE SCHEDULED. IV FLUIDS INFUSING ORDERED. AWAITING MORNING LABS, MONITORING H&H. TRANSFUSIONS HAVE BEEN REQUIRED FOR THIS PT. PT DENIES NAUSEA
[2020-08-14 04:40] LABS: Alanine Aminotransfer (ALT/SGP 21 U/L (12-78); Albumin, Blood 1.8 g/dL (3.4-5.0); Albumin/Globulin Ratio 0.5 (0.8-1.8); Alk Phos 63 U/L (50-136); Anion Gap 7 mmol/L (6-16); Aspartate Aminotrans (AST/SGOT 9 U/L (12-37); Bilirubin, Total 0.5 mg/dL (0.1-1.0); Blood Urea Nitrogen 5 mg/dL (8-24); Bun/Creatinine Ratio 7.5 (12.0-20.0); CO2, Blood 26 mmol/L (21-32); Calcium, Blood 7.6 mg/dL (8.5-10.1); Chloride, Blood 106 mmol/L (98-108); Creatinine, Blood 0.66 mg/dL (0.60-1.20); Globulin, Blood 3.3 g/dL (2.2-4.0); Glomerular Filtration Rate >60 (60-); Glucose, Blood 76 mg/dL (70-99); Potassium, Blood 3.8 mmol/L (3.5-5.5); Sodium, Blood 139 mmol/L (136-145); Total Protein, Blood 5.1 g/dL (6.4-8.2)
[2020-08-14 04:52] LABS: Percent Saturation 7.9 % (20.0-50.0)
--- NOTE | 2020-08-14 10:05 | NUR ---
PERMISSION TO CARE THIS TEACHER OF THE [employer] GOT PERMISSION FROM BETHANY DE LA CRUZ ON 08/14/20 TO PROVIDE CARE.
--- NOTE | 2020-08-14 18:36 | NUR ---
SHIFT SUMMARY PT IS ALERT AND ORIENTEDx4. NG HAS BEEN CLAMPED ALL DAY AND PT HAS TOLERATED REPORTING NO TO MINIMAL NAUSEA. PT HAS TOLERATED SMALL AMOUNTS OF ICE CHIPS AND SIPS OF WATER. PT WAS ASSISTED TO CHAIR TODAY AND TOLERATED BEING UP FOR A COUPLE OF HOURS. VITALS HAVE BEEN STABLE. PT REPORTS PAIN IS WELL CONTROLLED WITH RECYCLER FORKLIFT DRIVER TRUCK DRIVER USE.
--- NOTE | 2020-08-15 02:50 | NUR ---
POD4 SPLENECTOMY, A/O X4, VSS, TOLERATING ICE CHIPS BUT NPO OTHERWISE, VOIDING IN URINAL AT BEDSIDE, PAIN CONTROLLED VIA AUTO CRANE DRIVER, INDEPENDENT IN THE ROOM. CALL LIGHT IN REACH, WILL CONTINUE TO MONITOR AND REPORT TO ONCOMING DAY RN.
[2020-08-15 07:41] LABS: BASOPHILS ABSOLUTE AUTO 0.15 K/mm3 (0.00-0.23); BASOPHILS PERCENT AUTO 1 % (0-2); EOSINOPHILS ABSOLUTE AUTO 0.56 K/mm3 (0.00-0.68); EOSINOPHILS PERCENT AUTO 3 % (0-6); Hemoglobin 8.1 g/dL (13.5-17.5); IMMATURE GRAN PERCENT AUTO 1 % (0-1); LYMPHOCYTES ABSOLUTE AUTO 2.04 K/mm3 (0.84-5.20); LYMPHOCYTES PERCENT AUTO 12 % (21-46); MONOCYTES PERCENT AUTO 9 % (4-13); Mean Corpuscular HGB 30.3 pg (26.0-34.0); Mean Corpuscular HGB Conc 33.8 g/dL (31.5-36.5); Mean Corpuscular Volume 90 fL (80-100); Mean Platelet Volume 8.8 fL (9.1-12.4); NEUTROPHILS ABSOLUTE AUTO 12.77 K/mm3 (1.96-9.15); NEUTROPHILS PERCENT AUTO 74 % (41-73); NRBC ABSOLUTE 0.05 K/mm3 (0.00-0.02); NRBC Auto 0.3 /100 WBC (0.0-0.2); Platelet Count 541 K/mm3 (150-400); RDW Coefficient Variation 13.4 % (11.7-14.2); RDW Standard Deviation 43.5 fL (35.1-46.3); Red Blood Cell Count 2.67 M/mm3 (4.30-5.90); White Blood Cell Count 17.22 K/mm3 (4.00-11.30)
--- NOTE | 2020-08-15 18:29 | NUR ---
SUMMARY: NO ACUTE CHANGE TODAY. A/O, VSS. NGT AND PIGTAIL DRAIN DC'D THIS MORNING BY DR. ARMENDARIZ. DIET ADVANCED TO CLEAR LIQ, PT SALINE LOCKED EXCEPT FOR ABX. PT TOLERATING. REPORTS PAIN IS MANAGED WITH PO PAIN MEDS. REPORTS PASSING FLATUS AND HAD SMALL BM TONIGHT. SURGICAL SITES WNL. NO SAFETY CONCERNS AT THIS TIME.
--- NOTE | 2020-08-15 21:51 | NUR ---
IV IN R AC WAS RED, SORE, AND HAD A ROUND FIRM AREA NEAR THE TIP OF THE CATHETER. DC'D W/O DIFFICULTY, PT REPORTS ARM FEELING BETTER WITHIN A FEW MINUTES. IV ACCESS STILL IN PLACE ON L ARM
--- NOTE | 2020-08-16 05:21 | NUR ---
SHIFT SUMMARY POD 4 SPLENECTOMY, A/O X4, VSS, TOLERATING CLEARS, VOIDING WELL, INDEPENDENT IN ROOM, PASSING FLATUS BUT NO BM THIS SHIFT, PAIN CONTROLLED W/ ORAL MEDS PER EMAR. CALL LIGHT IN REACH, WILL CONTINUE TO MONITOR AND REPORT TO ONCOMING DAY RN.
[2020-08-16 07:48] LABS: Amylase, Body Fluid 22 U/L
[2020-08-16] MEDS ORDERED: HYDROCODONE-AC1 EA10 PO (14:27)
[2020-08-16] MEDS ORDERED: AMOCLA875 PO (14:29)
[2020-08-16] MEDS ORDERED: [UNRECOGNIZED DRUG - OTHER] (14:33)
--- NOTE | 2020-08-16 18:18 | NUR ---
SUMMARY: PT IS POD5 SPLEENECTOMY. NO ACUTE CHANGE, VSS, A/O. WOUND VAC AND ROBERTA REMOVED BY DR. ARMENDARIZ THIS MORNING, SURGICAL SITES WNL. PT HAS HAD MINIMAL PAIN, REPORTS 2 NARCO MANAGING WELL. ABLE TO TOLERATE SMALL AMT OF REGULAR DIET FOR LUNCH AND DINNER, DENIED N/V. PT REPORTS SMALL BMS TODAY. PLAN IS FOR DC TOMORROW. NO SAFETY CONCERNS.
--- NOTE | 2020-08-17 05:17 | NUR ---
SHIFT SUMMARY PT IS A/O X4 AND IND IN ROOM. REPORTS VOIDING, PASSING FLATUS, AND HAVING SMALL BM'S. PAIN MANAGED WITH PO PAIN MED PER ORDERS. PT HAS BEEN RESTING MOST OF THE SHIFT, DENIES FURTHER NEEDS. TOLERATING PO INTAKE W/O N/V OVERNIGHT. RESTING IN BED WITH CALL LIGHT IN REACH AT THIS TIME.
[2020-08-17 05:49] LABS: BASOPHILS ABSOLUTE AUTO 0.15 K/mm3 (0.00-0.23); BASOPHILS PERCENT AUTO 1 % (0-2); EOSINOPHILS ABSOLUTE AUTO 0.26 K/mm3 (0.00-0.68); EOSINOPHILS PERCENT AUTO 2 % (0-6); Hematocrit 26.4 % (37.0-53.0); Hemoglobin 8.9 g/dL (13.5-17.5); IMMATURE GRAN ABSOLUTE AUTO 0.14 K/mm3 (0.00-0.10); IMMATURE GRAN PERCENT AUTO 1 % (0-1); LYMPHOCYTES ABSOLUTE AUTO 2.06 K/mm3 (0.84-5.20); LYMPHOCYTES PERCENT AUTO 14 % (21-46); MONOCYTES ABSOLUTE AUTO 1.35 K/mm3 (0.16-1.47); MONOCYTES PERCENT AUTO 9 % (4-13); Mean Corpuscular HGB 29.8 pg (26.0-34.0); Mean Corpuscular HGB Conc 33.7 g/dL (31.5-36.5); Mean Corpuscular Volume 88 fL (80-100); Mean Platelet Volume 8.7 fL (9.1-12.4); NEUTROPHILS ABSOLUTE AUTO 10.42 K/mm3 (1.96-9.15); NEUTROPHILS PERCENT AUTO 73 % (41-73); NRBC ABSOLUTE 0.02 K/mm3 (0.00-0.02); NRBC Auto 0.1 /100 WBC (0.0-0.2); Platelet Count 791 K/mm3 (150-400); RDW Coefficient Variation 13.1 % (11.7-14.2); RDW Standard Deviation 41.2 fL (35.1-46.3); Red Blood Cell Count 2.99 M/mm3 (4.30-5.90); White Blood Cell Count 14.38 K/mm3 (4.00-11.30)
--- NOTE | 2020-08-17 19:19 | NUR ---
SHIFT SUMMARY PT DEVELOPED LEAKING OF GREEN STOOL LIKE SUBSTANCE FROM PREVIOUS PERC DRAIN SITE LLQ, DR ABRAHAM NOTIFIED AND NEW ORDERS OBTAINED FOR CT W/ORAL CONTRAST. PT HAS BEEN NPO SINCE 1300, TO CT AT APROX 1900.
[2020-08-18 08:53] LABS: BASOPHILS ABSOLUTE AUTO 0.13 K/mm3 (0.00-0.23); BASOPHILS PERCENT AUTO 1 % (0-2); EOSINOPHILS ABSOLUTE AUTO 0.25 K/mm3 (0.00-0.68); EOSINOPHILS PERCENT AUTO 2 % (0-6); Hemoglobin 9.3 g/dL (13.5-17.5); IMMATURE GRAN PERCENT AUTO 1 % (0-1); LYMPHOCYTES ABSOLUTE AUTO 2.38 K/mm3 (0.84-5.20); LYMPHOCYTES PERCENT AUTO 18 % (21-46); MONOCYTES ABSOLUTE AUTO 1.15 K/mm3 (0.16-1.47); MONOCYTES PERCENT AUTO 9 % (4-13); Mean Corpuscular HGB 29.4 pg (26.0-34.0); Mean Corpuscular HGB Conc 33.2 g/dL (31.5-36.5); Mean Corpuscular Volume 89 fL (80-100); Mean Platelet Volume 8.7 fL (9.1-12.4); NEUTROPHILS ABSOLUTE AUTO 8.98 K/mm3 (1.96-9.15); NEUTROPHILS PERCENT AUTO 69 % (41-73); NRBC ABSOLUTE 0.02 K/mm3 (0.00-0.02); NRBC Auto 0.2 /100 WBC (0.0-0.2); Platelet Count 884 K/mm3 (150-400); RDW Coefficient Variation 13.2 % (11.7-14.2); Red Blood Cell Count 3.16 M/mm3 (4.30-5.90); White Blood Cell Count 12.99 K/mm3 (4.00-11.30)
[2020-08-18 09:13] LABS: Alanine Aminotransfer (ALT/SGP 19 U/L (12-78); Albumin, Blood 2.2 g/dL (3.4-5.0); Albumin/Globulin Ratio 0.6 (0.8-1.8); Alk Phos 89 U/L (50-136); Anion Gap 5 mmol/L (6-16); Aspartate Aminotrans (AST/SGOT 11 U/L (12-37); Bilirubin, Total 0.3 mg/dL (0.1-1.0); Blood Urea Nitrogen 4 mg/dL (8-24); Bun/Creatinine Ratio 6.8 (12.0-20.0); CO2, Blood 26 mmol/L (21-32); Calcium, Blood 8.2 mg/dL (8.5-10.1); Chloride, Blood 105 mmol/L (98-108); Creatinine, Blood 0.59 mg/dL (0.60-1.20); Glomerular Filtration Rate >60 (60-); Glucose, Blood 86 mg/dL (70-99); Potassium, Blood 3.6 mmol/L (3.5-5.5); Sodium, Blood 136 mmol/L (136-145); Total Protein, Blood 6.2 g/dL (6.4-8.2)
--- NOTE | 2020-08-18 18:35 | NUR ---
SHIFT SUMMARY PT HAS DONE WELL T/O SHIFT. DRAIN INSERTION SITE LLQ DRESSING CHANGED ONCE THIS SHIFT, MOD AMT THICK GREEN DRAINAGE PRESENT ON DRESSING. PER DR ABRAHAM MAY APPLY OSTOMY OR UROSTOMY APPLIANCE IF DRAINAGE INCREASES TO PREVENT SKIN BREAKDOWN. PAIN MANAGED WITH ORAL PAIN MEDICATION PER EMAR.
--- NOTE | 2020-08-19 06:15 | NUR ---
SHIFT SUMMARY POD#7. AAOX4. DISCOMFORT CONTROLLED WITH 1 PAIN PILL PER ORDERS. NO NAUSEA/EMESIS. MIDLING WITH MARQUIS, MEDIPORE DRESSING C/D/I. PREVIOUS DRAIN SITE WITH SMALL AMOUNT GREEN LIQUID DRAINAGE OUT, DRESSING CHANGED X1 THIS SHIFT. INDEPENDENT IN ROOM. TOLERATING DIET WELL + GOOD OUTPUT. X1 LARGE BM THIS SHIFT. NO ACUTE CHANGES OVER NIGHT. RESTING WELL WITH CALL LIGHT IN REACH.
--- NOTE | 2020-08-19 11:00 | NUR ---
DR ABRAHAM IN TO SEE PT. CHANGED DRESSING TO LLQ
[2020-08-19] MEDS ORDERED: ONDA4ODT PO (14:47)
--- NOTE | 2020-08-19 15:27 | NUR ---
discharged REVIEWED DC INSTRUCTIONS W/PT; VERBALIZED UNDERSTANDING. PROVIDED DRESSINGS FOR DRESSING CHANGES. CALLED PRESCRIPTIONS INTO [facility] PER PT REQUEST. DC'D IV, CATHETER INTACT. PT LEFT UNIT BY AMBULATION W/POSSESSIONS AND DC PAPERWORK IN HAND TO RIDE AWAITING OUTSIDE.
== END 2020-08-19 15:10 | disposition home or self-care (01) | DRG 853 ==
LOC: ER 22:11 → ICUW 08-12 00:41 → ER 08-12 02:07 → ICUW 08-12 02:07 → SURS 08-13 14:36
PROVIDERS: Emergency Medicine; Internal Medicine; Surgery; ADMIT Internal Medicine
PROC: 07TP0ZZ Resection of Spleen, Open Approach (ICD-10-PCS; 2020-08-12 07:30)
PROC: 30233N1 Transfusion of Nonautologous Red Blood Cells into Peripheral Vein, Percutaneous Approach (ICD-10-PCS; principal; 2020-08-13)
PROC: 3E0234Z Introduction of Serum, Toxoid and Vaccine into Muscle, Percutaneous Approach (ICD-10-PCS; 2020-08-16)
PROC: 3E0234Z Introduction of Serum, Toxoid and Vaccine into Muscle, Percutaneous Approach (ICD-10-PCS; 2020-08-16)
DX: A41.9 Sepsis, unspecified organism (principal); R57.8 Other shock; K65.9 Peritonitis, unspecified; D62 Acute posthemorrhagic anemia; K63.2 Fistula of intestine; K57.20 Diverticulitis of large intestine with perforation and abscess without bleeding; F17.210 Nicotine dependence, cigarettes, uncomplicated; D73.5 Infarction of spleen; I10 Essential (primary) hypertension; Z23 Encounter for immunization
CPT/HCPCS: 36415; 36430; 74177; 80047; 80053; 82150; 82310; 82728; 83540; 83550; 83605; 83690; 83735; 85014; 85018; 85025; 85027; 85049; 85384; 85610; 85730; 86850; 86900; 86901; 86920; 88305; 90732; 90734; 96361-59; 96374-59; 96375-59; 99291-25; A9270; J0330; J1170; J2250; J2405; J2543; J2704; J3010; J7030; J7050; P9016; P9059; Q9967

== ENCOUNTER 2020-11-13 06:39 | Day surgery (SDC) | payer OTHER ==
[~2020-11-13] VITALS: Ht 182.9 cm; Wt 86.9 kg
== END 2020-11-13 09:34 | disposition home or self-care (01) ==
LOC: ORSCSDS 06:39
PROC: 0DBN8ZX Excision of Sigmoid Colon, Via Natural or Artificial Opening Endoscopic, Diagnostic (ICD-10-PCS; principal; 2020-11-13)
DX: K63.2 Fistula of intestine (principal); K57.92 Diverticulitis of intestine, part unspecified, without perforation or abscess without bleeding; D12.5 Benign neoplasm of sigmoid colon; F17.210 Nicotine dependence, cigarettes, uncomplicated; G40.909 Epilepsy, unspecified, not intractable, without status epilepticus
CPT/HCPCS: 88305; J0461; J2250; J2405; J2704; J7120

== ENCOUNTER 2021-05-30 20:57 | Inpatient (IN) | payer OTHER ==
[~2021-05-30] VITALS: Ht 182.9 cm; Wt 90.7 kg
[~2021-05-30 20:57] MED LIST changes: +HYDROCODONE-AC1 EA10 PO; +ONDA4ODT PO; +[UNRECOGNIZED DRUG - OTHER]
[2021-05-30 21:52] LABS: BASOPHILS ABSOLUTE AUTO 0.16 K/mm3 (0.00-0.23); BASOPHILS PERCENT AUTO 1 % (0-2); EOSINOPHILS ABSOLUTE AUTO 0.28 K/mm3 (0.00-0.68); EOSINOPHILS PERCENT AUTO 3 % (0-6); Hemoglobin 16.3 g/dL (13.5-17.5); IMMATURE GRAN ABSOLUTE AUTO 0.04 K/mm3 (0.00-0.10); IMMATURE GRAN PERCENT AUTO 0 % (0-1); LYMPHOCYTES ABSOLUTE AUTO 2.41 K/mm3 (0.84-5.20); LYMPHOCYTES PERCENT AUTO 21 % (21-46); MONOCYTES ABSOLUTE AUTO 0.79 K/mm3 (0.16-1.47); MONOCYTES PERCENT AUTO 7 % (4-13); Mean Corpuscular HGB 30.7 pg (26.0-34.0); Mean Corpuscular HGB Conc 34.7 g/dL (31.5-36.5); Mean Corpuscular Volume 89 fL (80-100); Mean Platelet Volume 8.6 fL (9.1-12.4); NEUTROPHILS ABSOLUTE AUTO 7.69 K/mm3 (1.96-9.15); NEUTROPHILS PERCENT AUTO 68 % (41-73); Platelet Count 410 K/mm3 (150-400); RDW Coefficient Variation 13.7 % (11.7-14.2); RDW Standard Deviation 44.6 fL (35.1-46.3); Red Blood Cell Count 5.31 M/mm3 (4.30-5.90); White Blood Cell Count 11.37 K/mm3 (4.00-11.30)
[2021-05-30 22:08] LABS: Alanine Aminotransfer (ALT/SGP 17 U/L (12-78); Albumin, Blood 3.7 g/dL (3.4-5.0); Albumin/Globulin Ratio 0.9 (0.8-1.8); Alk Phos 103 U/L (50-136); Anion Gap 5 mmol/L (6-16); Aspartate Aminotrans (AST/SGOT 19 U/L (12-37); Bilirubin, Total 0.4 mg/dL (0.1-1.0); Blood Urea Nitrogen 6 mg/dL (8-24); Bun/Creatinine Ratio 7.4 (12.0-20.0); CO2, Blood 28 mmol/L (21-32); Calcium, Blood 9.7 mg/dL (8.5-10.1); Chloride, Blood 100 mmol/L (98-108); Creatinine, Blood 0.81 mg/dL (0.60-1.20); Globulin, Blood 4.2 g/dL (2.2-4.0); Glomerular Filtration Rate >60 (60-); Glucose, Blood 111 mg/dL (70-99); Potassium, Blood 3.6 mmol/L (3.5-5.5); Sodium, Blood 133 mmol/L (136-145); Total Protein, Blood 7.9 g/dL (6.4-8.2)
[2021-05-30 22:42] LABS: Source, Urine Voided
[2021-05-30 22:44] LABS: Bilirubin, Urine Neg (Neg); Blood, Urine Neg (Neg); Glucose Qualitative, Urine Neg (Neg); Ketones, Urine Neg (Neg); Leukocyte Esterase, Urine Neg (Neg); Nitrite, Urine Neg (Neg); Protein, Urine Neg (Neg); Urobilinogen, Urine NORM (Normal)
[2021-05-30 22:46] LABS: Appearance, Urine Clear (Clear); Color, Urine Yellow (P-Yellow)
[2021-05-31 04:16] LABS: BASOPHILS ABSOLUTE AUTO 0.14 K/mm3 (0.00-0.23); BASOPHILS PERCENT AUTO 1 % (0-2); EOSINOPHILS PERCENT AUTO 3 % (0-6); Hematocrit 45.2 % (37.0-53.0); Hemoglobin 15.6 g/dL (13.5-17.5); IMMATURE GRAN ABSOLUTE AUTO 0.02 K/mm3 (0.00-0.10); IMMATURE GRAN PERCENT AUTO 0 % (0-1); LYMPHOCYTES ABSOLUTE AUTO 3.17 K/mm3 (0.84-5.20); LYMPHOCYTES PERCENT AUTO 32 % (21-46); MONOCYTES ABSOLUTE AUTO 0.95 K/mm3 (0.16-1.47); MONOCYTES PERCENT AUTO 10 % (4-13); Mean Corpuscular HGB Conc 34.5 g/dL (31.5-36.5); Mean Corpuscular Volume 90 fL (80-100); Mean Platelet Volume 8.8 fL (9.1-12.4); NEUTROPHILS ABSOLUTE AUTO 5.23 K/mm3 (1.96-9.15); NEUTROPHILS PERCENT AUTO 53 % (41-73); Platelet Count 359 K/mm3 (150-400); RDW Standard Deviation 45.9 fL (35.1-46.3); Red Blood Cell Count 5.03 M/mm3 (4.30-5.90); White Blood Cell Count 9.81 K/mm3 (4.00-11.30)
[2021-05-31 04:43] LABS: Anion Gap 6 mmol/L (6-16); Blood Urea Nitrogen 6 mg/dL (8-24); Bun/Creatinine Ratio 7.9 (12.0-20.0); CO2, Blood 25 mmol/L (21-32); Calcium, Blood 8.9 mg/dL (8.5-10.1); Chloride, Blood 104 mmol/L (98-108); Creatinine, Blood 0.76 mg/dL (0.60-1.20); Glomerular Filtration Rate >60 (60-); Glucose, Blood 94 mg/dL (70-99); Potassium, Blood 3.9 mmol/L (3.5-5.5); Sodium, Blood 135 mmol/L (136-145)
--- NOTE | 2021-05-31 06:25 | NUR ---
AAOX4. NO ACUTE DISTRESS AT THIS TIME. ABD DRESSING INTACT, CLEAN AND DRY. PATIENT HAS NO PAIN. SLEEPING IN BED. CALL LIGHT WITHIN RREACH REACH. BED AT LOWER POSTION.
[2021-05-31] MEDS ORDERED: Acetaminophen650 M1 PO (13:37)
[2021-05-31] MEDS ORDERED: ONDA4ODT PO (13:38)
[2021-05-31] MEDS ORDERED: AMOCLA875 PO (13:38)
--- NOTE | 2021-05-31 14:52 | NUR ---
DISCHARGE: PACKET PRINTED AND PT EDUCATED, PT VERBALIZED UNDERSTANDING. IV DC'D WNL. MEDS FAXED TO [facility]. PT LEFT UNIT AT ABOUT 1400 ON FOOT, DENIED NEED FOR WHEELCHAIR
== END 2021-05-31 14:00 | disposition home or self-care (01) | DRG 392 ==
LOC: ER 20:57 → SURS 05-31 00:55
PROVIDERS: Emergency Medicine; Family Medicine; Physician Assistant; ADMIT Internal Medicine
DX: K57.30 Diverticulosis of large intestine without perforation or abscess without bleeding (principal); N32.1 Vesicointestinal fistula; K43.2 Incisional hernia without obstruction or gangrene; I10 Essential (primary) hypertension; Z23 Encounter for immunization; Z79.899 Other long term (current) drug therapy; Z88.8 Allergy status to other drugs, medicaments and biological substances; Z90.49 Acquired absence of other specified parts of digestive tract; Z98.890 Other specified postprocedural states; F17.210 Nicotine dependence, cigarettes, uncomplicated
CPT/HCPCS: 36415; 74177; 80048; 80053; 81003; 85025; 87070; 87205; 96365-59; 96375; 99285-25; J0295; J1170; J2405; J7030; J7120; Q9967

== ENCOUNTER 2021-07-29 05:54 | Inpatient (IN) | payer OTHER ==
[~2021-07-29] VITALS: Ht 182.9 cm; Wt 93.5 kg
[~2021-07-29 05:54] MED LIST changes: +Acetaminophen650 M1 PO
[2021-07-29 07:28] LABS: BASOPHILS ABSOLUTE AUTO 0.17 K/mm3 (0.00-0.23); BASOPHILS PERCENT AUTO 1 % (0-2); EOSINOPHILS ABSOLUTE AUTO 0.15 K/mm3 (0.00-0.68); EOSINOPHILS PERCENT AUTO 1 % (0-6); Hematocrit 45.5 % (37.0-53.0); Hemoglobin 15.6 g/dL (13.5-17.5); IMMATURE GRAN ABSOLUTE AUTO 0.06 K/mm3 (0.00-0.10); IMMATURE GRAN PERCENT AUTO 1 % (0-1); LYMPHOCYTES ABSOLUTE AUTO 2.18 K/mm3 (0.84-5.20); LYMPHOCYTES PERCENT AUTO 17 % (21-46); MONOCYTES ABSOLUTE AUTO 1.02 K/mm3 (0.16-1.47); MONOCYTES PERCENT AUTO 8 % (4-13); Mean Corpuscular HGB 29.8 pg (26.0-34.0); Mean Corpuscular HGB Conc 34.3 g/dL (31.5-36.5); Mean Corpuscular Volume 87 fL (80-100); Mean Platelet Volume 8.9 fL (9.1-12.4); NEUTROPHILS ABSOLUTE AUTO 9.21 K/mm3 (1.96-9.15); NEUTROPHILS PERCENT AUTO 72 % (41-73); Platelet Count 420 K/mm3 (150-400); RDW Coefficient Variation 13.3 % (11.7-14.2); RDW Standard Deviation 42.6 fL (35.1-46.3); Red Blood Cell Count 5.24 M/mm3 (4.30-5.90); White Blood Cell Count 12.79 K/mm3 (4.00-11.30)
[2021-07-29 07:48] LABS: Alanine Aminotransfer (ALT/SGP 42 U/L (12-78); Albumin, Blood 3.5 g/dL (3.4-5.0); Albumin/Globulin Ratio 0.9 (0.8-1.8); Alk Phos 82 U/L (50-136); Anion Gap 7 mmol/L (6-16); Aspartate Aminotrans (AST/SGOT 41 U/L (12-37); Bilirubin, Total 0.6 mg/dL (0.1-1.0); Blood Urea Nitrogen 12 mg/dL (8-24); Bun/Creatinine Ratio 15.2 (12.0-20.0); CO2, Blood 26 mmol/L (21-32); Calcium, Blood 8.6 mg/dL (8.5-10.1); Chloride, Blood 104 mmol/L (98-108); Creatinine, Blood 0.79 mg/dL (0.60-1.20); Glomerular Filtration Rate >60 (60-); Glucose, Blood 80 mg/dL (70-99); Potassium, Blood 3.3 mmol/L (3.5-5.5); Sodium, Blood 137 mmol/L (136-145); Total Protein, Blood 7.5 g/dL (6.4-8.2)
--- NOTE | 2021-07-29 08:41 | NUR ---
07/29/21 0841 Daniel Morrison DRY SCALY REDDENED SKIN NOTED IN PERINEUM AND GLUTEAL FOLD. MD AWARE, NO NEW ORDERS. LOWER LEFT ABDOMEN SMALL 5-10MM FISTULA PRESENT. CLEAN, DRY. STEELE CATHETER PLACED PRIOR TO DRAPING BY ORD.LMA. PREOPERATIVE PREP WITH SALINE AND BETADINE CLEANSING PERFORMED BY DR ARMENDARIZ.
--- NOTE | 2021-07-29 15:00 | NUR ---
DR MILLIGAN BOLUSING EPIDURAL PT VERY PAINFUL 04/11 NEW ORDERD FOR EPIDURAL PUMP TAKEN VERBALLY FROM DR MILLIGAN. REPORT GIVEN TO AKSHAT ON SURGICAL FLOOR PT LEVEL T8 PT RESTING WELL AND DENIES NUMBNESS IN HANDS PT HAS COLOSTOMY BAG OVER ILLIOSTOMY AND AN ABD KIANA DRESSING MIDLINE ABD VAC HAVING LEAK AKSHAT RN ATTEMPTING LEAK FIX
--- NOTE | 2021-07-29 16:29 | NUR ---
SHIFT SUMMARY/ARRIVAL PT ARRIVED TO UNIT AT 1500. RESPONDS TO QUESTIONS APPROPRIATLY AND AWAKENS. REPORTS FEELING VERY TIRED AND PAIN IS MANAGED WITH EPIDURAL. HE HAS THE PAD EXTRACTION TENDER HANDLE AND HAS BEEN USING IT. TOLERATING ICE CHIPS AT THIS TIME. NO NAUSEA REPORTED. CONTINOUS PULSE OX IS ON AND SATS REMAIN 92% OR HIGHER ON ROOM AIR. MIDLINE PICCO SMALL AMOUNT SS DRAINAGE CIRCLED ON ARRIVAL. ILEOSTOMY TO RLQ PINK AND BEEFY. PASSING FLATUS THROUGH STOMA. SMALL AMOUNT GREEN/BROWN OUTPUT IN BAG. STEELE PATENT AND DRAINING. SENSATION REMAINS UNCHANGED SINCE ARRIVAL STILL REPORTED MINIMAL SENSATION FROM FEET TO THIGHS, NUMB TO JUST ABOVE UMBILICUS AND SENSATION RETURNS ABOVE. LUNGS CLEAR THROUGHOUT PT ABLE TO TAKE DEEP BREATHS. CALL LIGHT IN REACH AND PT USES APPROPRIATLY.
[2021-07-30 04:37] LABS: BASOPHILS ABSOLUTE AUTO 0.07 K/mm3 (0.00-0.23); BASOPHILS PERCENT AUTO 1 % (0-2); EOSINOPHILS ABSOLUTE AUTO 0.01 K/mm3 (0.00-0.68); EOSINOPHILS PERCENT AUTO 0 % (0-6); Hematocrit 42.5 % (37.0-53.0); Hemoglobin 14.2 g/dL (13.5-17.5); IMMATURE GRAN ABSOLUTE AUTO 0.07 K/mm3 (0.00-0.10); IMMATURE GRAN PERCENT AUTO 1 % (0-1); LYMPHOCYTES ABSOLUTE AUTO 2.87 K/mm3 (0.84-5.20); LYMPHOCYTES PERCENT AUTO 19 % (21-46); MONOCYTES ABSOLUTE AUTO 1.02 K/mm3 (0.16-1.47); MONOCYTES PERCENT AUTO 7 % (4-13); Mean Corpuscular HGB 30.3 pg (26.0-34.0); Mean Corpuscular HGB Conc 33.4 g/dL (31.5-36.5); Mean Corpuscular Volume 91 fL (80-100); Mean Platelet Volume 8.8 fL (9.1-12.4); NEUTROPHILS ABSOLUTE AUTO 10.88 K/mm3 (1.96-9.15); NEUTROPHILS PERCENT AUTO 73 % (41-73); Platelet Count 319 K/mm3 (150-400); RDW Coefficient Variation 13.8 % (11.7-14.2); RDW Standard Deviation 45.7 fL (35.1-46.3); Red Blood Cell Count 4.69 M/mm3 (4.30-5.90); White Blood Cell Count 14.92 K/mm3 (4.00-11.30)
[2021-07-30 05:12] LABS: Anion Gap 5 mmol/L (6-16); Blood Urea Nitrogen 8 mg/dL (8-24); Bun/Creatinine Ratio 9.2 (12.0-20.0); CO2, Blood 30 mmol/L (21-32); Calcium, Blood 8.3 mg/dL (8.5-10.1); Chloride, Blood 103 mmol/L (98-108); Creatinine, Blood 0.87 mg/dL (0.60-1.20); Glomerular Filtration Rate >60 (60-); Glucose, Blood 112 mg/dL (70-99); Potassium, Blood 4.1 mmol/L (3.5-5.5); Sodium, Blood 138 mmol/L (136-145)
--- NOTE | 2021-07-30 05:13 | NUR ---
ALERT AND ORIENTED X'S 4. ABLE TO MAKE NEEDS KNOWN WITHOUT DIFFICULTY. EPIDURAL INFUSING AT 18ML/HR, VOICED PAIN BTW 2-3 AT THIS TIME. SELF BOLUSES NEEDED PER SETTINGS. DRESSING CLEAN DRY AND INTACT. HAS DECREASED SENSATION BTW LOWER LEFT ABDOMEN TO LEFT THIGH, ABLE TO LIFT BLE'S, WIGGLE TOES AND MOVE FEET. PATIENT EASILY AROUSABLE, SATURATION 96% ON 1L VIA N/C, RESPIRATIONS EVEN AND UNLABORED, BILATERAL LUNG SOUNDS CLEAR. DESATS TO 90% WHEN O2 REMOVED. MIDLINE KIANA DRESSING INTACT TO ABDOMEN, NOTED NEW SMALL AMOUNT OF DRAINAGE TO MIDLINE DRESSING NEAR OSTOMY. ILEOSTOMY DRAINING BROWNISH/GRN LIQUID. CURRENTLY RESTING PEACEFULLY IN BED, SAFETY MAINTAINED, CALL DEUTSCH IN REACH.
--- NOTE | 2021-07-30 17:12 | NUR ---
PT. ALERT AND ORIENTED. DOZING BUT EASILY AWAKENED. STIFF WITH MOVEMENT AND SPLINTING WITH PILLOW ENCOURAGED AND USED. EPIDURAL DRSG. ON BACK CLEAN, DRY AND INTACT. DRSG. ON ABDOMEN WITH SMALL AMOUNT DRAINAGE ON DISTAL END. ILEOSTOMY POUCH INTACT WITH SM. AMOUNT BROWN FLUID. PATIENT STATES PAIN IS AT TOLERABLE LEVEL WITH FENT. EPIDURAL INFUSING. STATES LEFT HIP AREA SLIGHTLY NUMB AND TINGLING , R SIDE NOT MUCH. ABLE TO WIGGLE TOES AND MOVE ALL EXTREMETIES. REFUSED CLR. LIQUID TRAY, STATES "IM JUST NOT FEELING READY FOR THAT". HAS BEEN SIPPING ON WATER AND TAKING ICE CHIPS. DRANK OF FEW SIPS OF CLR. ENSURE. DENIES NAUSEA. VSS, AFEBRILE AT 98.5. REMAINS ON 1L PER NC FOR SAT 95%.
--- NOTE | 2021-07-31 06:35 | NUR ---
COMPLAINED OF NAUSES/VOMITTING THROUGH NIGHT ALSO BELCHING THROUGH NIGHT, ABDOMEN SPLINTED WITH PILLOW. ZOFRAN 4MG GIVEN VIA IV X'S 2, EFFECTIVE RELIEF. ABDOMEN DISTENDED, BOWEL SOUNDS PRESENT X'S 4. MIDLINE KIANA DRESSING INTACT, NOTED DRAINAGE TO POSTERIOR DRESSING. ILEOSTOMY DRAINED ABOUT 600ML OF GREENISH/YELLOW LIQUID. STEELE CATHETER DRAINING DARK TEA COLORED URINE. EPIDURAL DRESSING C/D/I . FENTANYL EPIDURAL CONTINUES TO INFUSE AT 18MLS/HR. RESTING PEACEFULLY AT THIS TIME, SAFETY MAINTAINED, CALL DEUTSCH IN REACH.
--- NOTE | 2021-07-31 07:32 | NUR ---
DR ARMENDARIZ IN TO SEE PT CHANGED KIANA TO MEDIPORE DRESSING. DISCUSSED BP; NO NEW ORDERS AT THIS TIME. PT'S CALL LIGHT IN REACH. PROVIDED ICE CHIPS PER REQUEST.
--- NOTE | 2021-07-31 14:50 | NUR ---
NUMBNESS TO L SIDE LLE NUMB FROM MIDCALF TO THIGH. ALSO HAS SPOT ON L SIDE THAT IS NUMB APPROX LEVEL OF UMBILICUS. WAS UNABLE TO LIFT LEG SUFFICIENTLY TO STAND AND TRANSFER TO CHAIR. SITTING ON EDGE OF BED. CALL LIGHT IN REACH.
--- NOTE | 2021-07-31 18:16 | NUR ---
SUMMARY NO ACUTE CHANGES T/O SHIFT. PAIN MANAGED PER EPIDURAL. PLANS TO DC TOMORROW. PT TAKING ICE CHIPS AND WATER. DOES NOT WISH TO TAKE OTHER CLEARS. MEDICATED ONCE DURING SHIFT FOR NAUSEA. STEELE DRAINING DARK SAL URINE. ILEOSTOMY PUTTING OUT CLEAR LIQUID. CALL LIGHT AND EPIDURAL IN REACH.
[2021-08-01 04:43] LABS: BASOPHILS ABSOLUTE AUTO 0.06 K/mm3 (0.00-0.23); BASOPHILS PERCENT AUTO 1 % (0-2); EOSINOPHILS ABSOLUTE AUTO 0.13 K/mm3 (0.00-0.68); EOSINOPHILS PERCENT AUTO 1 % (0-6); Hematocrit 40.3 % (37.0-53.0); Hemoglobin 13.6 g/dL (13.5-17.5); IMMATURE GRAN ABSOLUTE AUTO 0.04 K/mm3 (0.00-0.10); IMMATURE GRAN PERCENT AUTO 0 % (0-1); LYMPHOCYTES ABSOLUTE AUTO 1.85 K/mm3 (0.84-5.20); LYMPHOCYTES PERCENT AUTO 16 % (21-46); MONOCYTES ABSOLUTE AUTO 0.81 K/mm3 (0.16-1.47); MONOCYTES PERCENT AUTO 7 % (4-13); Mean Corpuscular HGB 30.4 pg (26.0-34.0); Mean Corpuscular HGB Conc 33.7 g/dL (31.5-36.5); Mean Corpuscular Volume 90 fL (80-100); Mean Platelet Volume 9.1 fL (9.1-12.4); NEUTROPHILS PERCENT AUTO 76 % (41-73); Platelet Count 316 K/mm3 (150-400); RDW Coefficient Variation 13.2 % (11.7-14.2); RDW Standard Deviation 43.6 fL (35.1-46.3); Red Blood Cell Count 4.48 M/mm3 (4.30-5.90); White Blood Cell Count 11.89 K/mm3 (4.00-11.30)
[2021-08-01 05:12] LABS: Anion Gap 6 mmol/L (6-16); Blood Urea Nitrogen 10 mg/dL (8-24); Bun/Creatinine Ratio 13.9 (12.0-20.0); CO2, Blood 26 mmol/L (21-32); Calcium, Blood 8.6 mg/dL (8.5-10.1); Chloride, Blood 103 mmol/L (98-108); Creatinine, Blood 0.72 mg/dL (0.60-1.20); Glomerular Filtration Rate >60 (60-); Glucose, Blood 87 mg/dL (70-99); Magnesium, Blood 2.1 mg/dL (1.6-2.4); Phosphorus, Blood 2.6 mg/dL (2.5-4.9); Potassium, Blood 4.1 mmol/L (3.5-5.5); Sodium, Blood 135 mmol/L (136-145)
--- NOTE | 2021-08-01 05:42 | NUR ---
SLEPT WELL THROUGH NIGHT, PAIN CONSISTANTLY AT A 2. FENTANYL EPIDURAL INFUSING AT 18ML/HR, DRESSING CLEAN DRY AND INTACT TO LOWER BACK. MIDLINE INCISON HAD A MODERATE AMT OF TANISH DRAINAGE NOTED TO INFERIOR DRESSING. CHANGED DRESSING , CLEANED WITH N/S AT 0540, MARQUIS INTACT. STATES DECREASED SENSATION TO MID ABD RADIATING DOWN TO LEFT FOOT AND RIGHT UPPER THIGH, ABLE TO WIGGLE TOES AND MOVE BILATERAL FEET AROUND. ILEOSTOMY DRAINED 300ML, OF GREENISH/YELLOW THIN LIQUID WITH SEDIMET. CURRENTLY RESTING PEACEFULLY, SAFETY MAINTAINED.
--- NOTE | 2021-08-01 07:46 | NUR ---
TURNED OFF EPIDURAL PER DR ARMENDARIZ'S VERBAL ORDER.
--- NOTE | 2021-08-01 17:15 | NUR ---
SUMMARY PT'S EPIDURAL DC'D THIS AM. PAIN MANAGED PER EMAR. PT'S STEELE CATH DC'D THIS AFTERNOON. PT SITTING UP ON SIDE OF BED, BRUSHING TEETH. ILEOSTOMY PUTTING OUT CLEAR LIQUID. PT TOLERATED CLEAR LIQUIDS. PLAN TO ADVANCE TO FULL LIQUID FOR DINNER. CALL LIGHT IN REACH.
--- NOTE | 2021-08-02 06:01 | NUR ---
Meicated for pain management through night, effective relief. Midline dressing intact, small amt of drainage noted. Received 100ml of dark grn fluid from ileostomy. Voiding without difficulty post Castellanos removal, received 600ml of darm anant urine. Safety maintained, call moreland in reach.
--- NOTE | 2021-08-02 18:17 | NUR ---
SHIFT SUMMARY PT A&OX4, VSS/RA, POD3 SIG COL W/LOOP ILEOSTOMY WITH DK GREEN OUT + FLATUS. PAIN MANAGED WELL TODAY WITH 10 MG NORCO. AMB INDEPENDENT IN ROOM, SHOWER TODAY, UP TO CHAIR, AMB TO BRP. VOIDING WELL. JUAN DANIEL PO. WILL REPORT TO ONCOMING NOC RN.
--- NOTE | 2021-08-03 05:46 | NUR ---
SLEPT WELL THROUGH NIGHT. MEDICATED PER EMAR FOR PAIN MANAGEMENT. ILEOSTOMY DRAINING 300ML GRN OUTPUT. CHANGED DRESSING TO MIDLINE ABDOMEN, CLEANED WITH WOUND CLEANSER, MARQUIS INTACT, APPLIED MEDIPORE DRESSING. SAFETY MAINTAINED, CALL DEUTSCH IN REACH.
[2021-08-03 05:52] LABS: Anion Gap 9 mmol/L (6-16); Blood Urea Nitrogen 7 mg/dL (8-24); Bun/Creatinine Ratio 10.6 (12.0-20.0); CO2, Blood 23 mmol/L (21-32); Calcium, Blood 8.2 mg/dL (8.5-10.1); Chloride, Blood 103 mmol/L (98-108); Creatinine, Blood 0.66 mg/dL (0.60-1.20); Glomerular Filtration Rate >60 (60-); Glucose, Blood 93 mg/dL (70-99); Sodium, Blood 135 mmol/L (136-145)
--- NOTE | 2021-08-03 15:52 | NUR ---
SHIFT SUMMARY PT A&OX4, VSS/RA, INDEPENDENT IN ROOM, TO BRP-VOIDING WELL, UP TO CHAIR FOR MEALS, JUAN DANIEL PO REG DIET, LOW PO INTAKE. 18G LFA SL. PAIN MANAGED WITH 5 MG NORCO PRN. POD4 SIG COLECTOMY WITH LOOP ILEOSTOMY, ABD MIDLINE INCISION MARQUIS WITH MEDIPORE DRESSING DRY/INTACT, DK GREEN LIQUID OUT + FLATUS, EDU & ENC PT TO EMPTY AND BURP BAG, AND TO WATCH VIDEOS. WILL REPORT TO ONCOMING NOC RN.
--- NOTE | 2021-08-04 05:26 | NUR ---
ALERT AND ORIENTED X4. BOWELS SOUNDS HYPO ACTIVE; ILEOSTOMY IS INTACT; BUD IS PINK. ILEOSTOMY OUT PUT IS GREENISH LIQUID. PAIN MED WAS GIVEN ONCE. UP AD JOSE. EATING AND DRINKING WELL. INCISION IS INTACT.
[2021-08-04] MEDS ORDERED: Norco 5-325 Ta1 EACH PO (12:11)
[2021-08-04] MEDS ORDERED: LOPE2C PO (12:12)
[2021-08-04] MEDS ORDERED: METAMUCIL POWD575 GM PO (12:13)
--- NOTE | 2021-08-04 15:56 | NUR ---
DISCHARGE SUMMARY PT LEFT FLOOR VIA WC WITH DETENTION DEPUTY, TO GO HOME WITH ALL PERSONAL POSSESSIONS INCLUDING DC PACKET, 1 NARC SCRIPT/ACCOUNT ENGINEER OTC MEDS, OSTOMY SUPPLIES. DC INSTRUCTIONS PROVIDED. PT REP UNDERSTANDING THOSE INSTRUCTIONS INCLUDING WHEN TO CALL THE SURGEON/ APPT IN 1 WEEK, HOW TO CHANGE OSTOMY/SUPPLIES ORDERED FROM [facility] TO BE SENT TO HIS HOME ADDRESS, PAIN MANAGEMENT, NO LIFTING >20 LBS, OK TO SHOWER. IV DC'D.
== END 2021-08-04 16:09 | disposition home or self-care (01) | DRG 331 ==
LOC: SURS 05:54 → PRE IP 07:30 → SURS 14:57
PROVIDERS: ADMIT Surgery
PROC: 0DBW0ZX Excision of Peritoneum, Open Approach, Diagnostic (ICD-10-PCS; 2021-07-29)
PROC: 0DTN0ZZ Resection of Sigmoid Colon, Open Approach (ICD-10-PCS; principal; 2021-07-29 07:30)
PROC: 0D1B0Z4 Bypass Ileum to Cutaneous, Open Approach (ICD-10-PCS; 2021-07-29 07:30)
DX: K63.2 Fistula of intestine (principal); R06.6 Hiccough; R20.0 Anesthesia of skin; K43.2 Incisional hernia without obstruction or gangrene; G40.909 Epilepsy, unspecified, not intractable, without status epilepticus; Z90.89 Acquired absence of other organs; Z98.890 Other specified postprocedural states; Z86.010 Personal history of colon polyps; Z88.8 Allergy status to other drugs, medicaments and biological substances; Z87.891 Personal history of nicotine dependence; Z90.81 Acquired absence of spleen
CPT/HCPCS: 36415; 80048; 80053; 83735; 84100; 85025; 86850; 86900; 86901; 88305; 88307; 88331; 94762; A9270; J0690; J1100; J1170; J1650; J2001; J2250; J2405; J2704; J3010; J7120

== ENCOUNTER 2022-01-14 18:28 | Emergency (ER) | payer OTHER ==
[~2022-01-14] VITALS: Ht 182.9 cm; Wt 81.7 kg
[~2022-01-14 18:28] MED LIST changes: +LOPE2C PO; +METAMUCIL POWD575 GM PO
[2022-01-14 19:24] LABS: BASOPHILS ABSOLUTE AUTO 0.12 K/mm3 (0.00-0.23); BASOPHILS PERCENT AUTO 1 % (0-2); EOSINOPHILS ABSOLUTE AUTO 0.11 K/mm3 (0.00-0.68); EOSINOPHILS PERCENT AUTO 1 % (0-6); Hematocrit 43.8 % (37.0-53.0); Hemoglobin 15.5 g/dL (13.5-17.5); IMMATURE GRAN ABSOLUTE AUTO 0.03 K/mm3 (0.00-0.10); IMMATURE GRAN PERCENT AUTO 0 % (0-1); LYMPHOCYTES ABSOLUTE AUTO 1.89 K/mm3 (0.84-5.20); LYMPHOCYTES PERCENT AUTO 15 % (21-46); MONOCYTES ABSOLUTE AUTO 0.62 K/mm3 (0.16-1.47); MONOCYTES PERCENT AUTO 5 % (4-13); Mean Corpuscular HGB 31.6 pg (26.0-34.0); Mean Corpuscular HGB Conc 35.4 g/dL (31.5-36.5); Mean Corpuscular Volume 89 fL (80-100); Mean Platelet Volume 8.6 fL (9.1-12.4); NEUTROPHILS ABSOLUTE AUTO 9.75 K/mm3 (1.96-9.15); NEUTROPHILS PERCENT AUTO 78 % (41-73); Platelet Count 420 K/mm3 (150-400); RDW Coefficient Variation 13.7 % (11.7-14.2); Red Blood Cell Count 4.91 M/mm3 (4.30-5.90); White Blood Cell Count 12.52 K/mm3 (4.00-11.30)
[2022-01-14 19:42] LABS: Bilirubin, Total 0.4 mg/dL (0.1-1.0); Bun/Creatinine Ratio 10.4 (12.0-20.0); Calcium, Blood 9.2 mg/dL (8.5-10.1); Creatinine, Blood 0.67 mg/dL (0.60-1.20); Globulin, Blood 3.9 g/dL (2.2-4.0); Potassium, Blood 3.6 mmol/L (3.5-5.5); Total Protein, Blood 7.9 g/dL (6.4-8.2)
[2022-01-15] MEDS ORDERED: ONDA4 PO (10:11)
== END 2022-01-14 20:57 | disposition home or self-care (01) ==
LOC: ER 18:28
PROVIDERS: Physician Assistant
DX: K94.19 Other complications of enterostomy (principal); Y83.8 Other surgical procedures as the cause of abnormal reaction of the patient, or of later complication, without mention of misadventure at the time of the procedure; I10 Essential (primary) hypertension; F17.200 Nicotine dependence, unspecified, uncomplicated; Z79.899 Other long term (current) drug therapy; Z88.8 Allergy status to other drugs, medicaments and biological substances
CPT/HCPCS: 36415; 80053; 83690; 85025; 86850; 86900; 86901; 96374; 96376; 99283-25; J2405; J7030

== ENCOUNTER 2022-01-27 09:00 | Inpatient (IN) | payer OTHER ==
[~2022-01-27] VITALS: Ht 182.9 cm; Wt 90.5 kg
[~2022-01-27 09:00] MED LIST changes: +ONDA4 PO
--- NOTE | 2022-01-30 11:30 | NUR ---
Ambulatory in Day Surgery. Surgical site prepped with 2% Chlorhexidine cloth wipe. History, Chart, Medications and Allergies reviewed before start of procedure. Lungs clear T/O to Auscultation. Patient confirms NPO status and agrees with scheduled surgery. Pre-Op teaching done. Pt verbalizes understanding. Patient reports completing Chlorhexadine shower X2 prior to admission to hospital.
--- NOTE | 2022-01-30 15:34 | NUR ---
ATTEMPTED TO CONTACT DR NEVAREZ REGARDING PT PAIN. HE IS CURRENTLY UNAVAILABLE, DR ABRAHAM NOTIFIED OF PT STATUS. WILL PUT IN ORDERS FOR FENTANYL
--- NOTE | 2022-01-30 18:37 | NUR ---
POST OP: REPORT RECEIVED FROM CORRECTIONS UNIT SUPERVISOR. PT TO UNIT AT ABOUT 1600. PT IS A/O, VSS. SURGICAL SITE WNL. PT DENIES N/V AND REPORTS PAIN TOLERABLE. WILL CTM. CALL LIGHT IN REACH.
--- NOTE | 2022-01-30 18:38 | NUR ---
SUMMARY: NO CHANGE SINCE POST OP. PT SLEEPING ON AND OFF. ABLE TO TAKE IN WATER AND ICE CHIPS. MEDICATED X1 FOR PAIN. WILL PASS REPORT ON TO NATALI JUAREZ.
--- NOTE | 2022-01-31 06:18 | NUR ---
SHIFT SUMMARY POD1 ILEOSTOMY TAKEN DOWN WITH DR. ABRAHAM. PT TOLERATING ICE CHIPS AND WATER OVERNIGHT. DENIES NAUSEA AND VOMITING. PT REPORTS MIN-MOD PAIN, PAIN WORSE WHEN SITTING UP. PAIN MANAGED WITH DILAUDID 0.5MG X1, ROXICODONE 5MG X2, AND TORADOL 15MG X2 WITH PAIN RELIEF. IV FLUIDS INFUSING. DENIES PASSING FLATUS. VOIDING SMALL AMTS, PT REFUSE STRAIGHT CATH, STATING URINE FLOW IS JUST SLOW BUT HE IS ABLE TO FEEL AND MAKE VOIDS. WILL CONTINUE TO MONITOR THIS. BT PRESENT. SURGICAL SITE WITH GAUZE AND TAPE REMAIN CDI, NO DRAINAGE NOTED. CALL LIGHT WITHIN REACH. WILL CONTINUE TO MONITOR AND WILL PROVIDE REPORT TO ONCOMING NURSE.
--- NOTE | 2022-01-31 17:47 | NUR ---
SHIFT SUMMARY POD1 OSTOMY TAKEDOWN, A/O X4, VSS, TOLERATING PO CLEARS THIS MORNING AND REGULAR DIET FOR LUNCH AND DINNER, PAIN WELL MANAGD c ORAL PAIN MEDICATIONS, PT DOES WELL c SPLINTING WHEN HE COUGHS TO REDUCE PAIN, USES CALL LIGHT APPROPRIATELY. NO ACUTE EVENTS THIS SHIFT, CALL LIGHT IN REACH, WILL CTM AND REPORT TO ONCOMING NOC RN.
--- NOTE | 2022-02-01 04:40 | NUR ---
SHIFT SUMMARY POD2 ILEOSOMY TAKEN OUT. PT REPORTS MILD PAIN 2-4/10 PAIN LEVEL T/O SHIFT. PAIN MANAGED WITH TORADOL. PT STS PAIN IS BETTER COMPARED YESTERDAY. PT HAD 2 BITES OF HIS DINNER, FELT NAUSEATED, DAY SHIFT NURSE MEDICATED WITH ZOFRAN WITHOUT A RELIEF. PT VOMITED 100MLS YELLOWGREEN EMESIS ONCE, THEN CALLED DR. ABRAHAM, NOTIFIED OF THIS, NEW ORDER FOR PHENEGRAN ON EMR. MEDICATED PT WITH PHENEGRAN 12.5 ONCE WITH RELEIF. PT SLEPT GOOD OVERNIGHT, REPORTS INTERMITTENT MILD NAUSEA. MEDICATED FOR ANOTHER ZOFRAN THIS MORNING. PT STS HE IS PASSING SMALL AMT FLATUS. CALL LIGHT WITHIN REACH. WILL PROVIDE REPORT TO ONCOMING NURSE.
[2022-02-01 10:05] LABS: Albumin, Blood 3.2 g/dL (3.4-5.0); Anion Gap 7 mmol/L (6-16); Blood Urea Nitrogen 8 mg/dL (8-24); Bun/Creatinine Ratio 10.9 (12.0-20.0); CO2, Blood 26 mmol/L (21-32); Calcium, Blood 8.2 mg/dL (8.5-10.1); Chloride, Blood 106 mmol/L (98-108); Creatinine, Blood 0.74 mg/dL (0.60-1.20); Glomerular Filtration Rate 112 (60-); Glucose, Blood 109 mg/dL (70-99); Magnesium, Blood 2.1 mg/dL (1.6-2.4); Phosphorus, Blood 2.1 mg/dL (2.5-4.9); Potassium, Blood 3.7 mmol/L (3.5-5.5); Sodium, Blood 139 mmol/L (136-145)
--- NOTE | 2022-02-01 19:20 | NUR ---
SHIFT SUMMARY POD2 OSTOMY TAKEDOWN, A/O X4, VSS, DIET CHANGED TO FULL LIQUID WHICH WAS TOLERATED BETTER PT WAS ABLE TO HAVE MORE INTAKE THAN HE WAS ON REGULAR DIET. PAIN WAS BETTER TODAY, ENCOURAGED PT TO WALK AND EDUCATED ON IMPORTANCE OF ACTIVITIES TO ENCOURGE RETURN OF BOWEL FUNCTION. PT REPORTS REMEMBERING THE SAME INFORMATION FROM THE SURGEON. NO ACUTE EVENTS THIS SHIFT, CALL LIGHT IN REACH, REPORT GIVEN TO NATALI RN.
--- NOTE | 2022-02-02 05:27 | NUR ---
SHIFT SUMMARY NO ACUTE CHANGES OVERNIGHT. PT PASSING FLATUS. VSS. REPORTS MINIMAL PAIN, MEDICATED TORADOL ONCE BEFORE SLEEP. TOLERATING PO INTAKE/FULL LIQ DIET, C/O MILD NAUSEA AT THE BEGINNING OF SHIFT. MEDICATED WITH ZOFRAN ONCE. NO BM YET. VOIDING WITHOUT ISSUE. IND IN ROOM. VSS. CALL LIGHT WITHIN REACH. WILL PROVIDE REPORT TO ONCOMING NURSE.
--- NOTE | 2022-02-02 11:20 | NUR ---
SURGICAL SITE DRESSING CHANGED AFTER PT'S SHOWER. GAUZE AND MEDIPORE DRESSING REMOVED. CLEAN MEDIPORE DRESSING PLACED.
--- NOTE | 2022-02-02 16:27 | NUR ---
HYPERTENSION PT HAS AN ELEVATED BLOOD PRESSURE OF 155/106. BLOOD PRESSURE WAS CHECKED AGAIN AND RESULT SHOWED 154/106 AND ANOTHER RESULT OF 174/102. PT IS ASYMPTOMATIC OF ELEVATED BLOOD PRESSURE AND REPORTS THAT HIS BLOOD PRESSURE IS USUALLY ELEVATED WHILE IN THE HOSPITAL BUT NORMAL AT HOME AND AT HIS PRIMARY CARE OFFICE. DR. ABRAHAM STATED PT SHOULD FOLLOW UP WITH HIS PCP REGARDING HIS BLOOD PRESSURE TOMORROW AND HAVE HIS BP CHECKED AT HIS PCP'S OFFICE. PT INSTRUCTED TO FOLLOW UP WITH PCP TOMORROW. PT PLEASED WITH DISCHARGE PLAN. PT STATED HE THINKS HIS BP IS ELEVATED R/T BEING IN THE HOSPITAL.
--- NOTE | 2022-02-02 16:33 | NUR ---
DISCHARGE PT PROVIDED WITH WRITTEN AND VERBAL DISCHARGE INSTRUCTIONS, HE REPORTED UNDERSTANDING. DRESSINGS PROVIDED. PT HAD BM X3 PRIOR TO DISCHARGE, HE REPORTED THE STOOL APPEARED TO BE "OLD BLOOD" DR. ABRAHAM AWARE AND PROVIDED PT ABOUT EDUCATION TO WATCH FOR A CHANGE IN THE APPEARANCE OF THE BLOOD FROM DARK/BLACK TO BRIGHT RED. PT ALSO EDUCATED THAT STOOL SHOULD BECOME MORE NORMAL IN APPEARANCE AND MORE FORMED HIS DIET RETURNS TO NORMAL. PT EDUCATED TO WATCH FOR SIGNS/SYMPTOMS OF LOW H&H. PT AMBULATED OUT INDEPENDENTLY AT 1635.
== END 2022-02-02 16:35 | disposition home or self-care (01) | DRG 331 ==
LOC: PRE IP 09:00 → SURS 01-30 10:31
PROVIDERS: Surgery; ADMIT Surgery
PROC: 0DSB0ZZ Reposition Ileum, Open Approach (ICD-10-PCS; principal; 2022-01-30 12:00)
DX: Z43.2 Encounter for attention to ileostomy (principal); G40.909 Epilepsy, unspecified, not intractable, without status epilepticus; Z98.890 Other specified postprocedural states; Z87.19 Personal history of other diseases of the digestive system; Z90.81 Acquired absence of spleen; Z90.49 Acquired absence of other specified parts of digestive tract; Z79.899 Other long term (current) drug therapy; Z88.8 Allergy status to other drugs, medicaments and biological substances; Z87.891 Personal history of nicotine dependence
CPT/HCPCS: 36415; 80069; 83735; 88307; 88312; A9270; J0694; J1100; J1170; J1650; J1885; J2250; J2405; J2550; J2704; J2710; J2795; J3010; J7060; J7120

== ENCOUNTER 2023-02-12 09:35 | Day surgery (SDC) | payer OTHER ==
[~2023-02-12] VITALS: Ht 182.9 cm; Wt 88.7 kg
[2023-02-12 12:29] VITALS: BP 118/70
== END 2023-02-12 12:32 | disposition home or self-care (01) ==
LOC: ORSCSDS 09:35
PROVIDERS: Surgery
PROC: 0DJD8ZZ Inspection of Lower Intestinal Tract, Via Natural or Artificial Opening Endoscopic (ICD-10-PCS; principal; 2023-02-12 11:15)
DX: Z12.11 Encounter for screening for malignant neoplasm of colon (principal); Z87.891 Personal history of nicotine dependence
CPT/HCPCS: J0461; J2001; J2405; J2704; J7120; Q9968

== ENCOUNTER 2023-07-14 06:08 | Observation (INO) | payer OTHER ==
[~2023-07-14] VITALS: Ht 182.9 cm; Wt 98.6 kg
[2023-07-14] VITALS (31 sets, daily range): BP systolic 125–175; BP diastolic 78–115
--- NOTE | 2023-07-14 06:52 | NUR ---
Ambulatory in Day Surgery History, Chart, Medications and Allergies reviewed before start of procedure. Pre-Op teaching done. Pt verbalizes understanding. Patient States Post-Procedure ride home has been arranged.
--- NOTE | 2023-07-14 08:07 | NUR ---
07/14/23 0807 Betty Streeter PSORIASIS PATCHED NOTED TO LOWER ABDOMEN AREA. DR. ARMENDARIZ AWARE. PREP WITH BETADINE TO LOWER ABDOMEN AND CHLORAPREP TO UPPER ABDOMEN
--- NOTE | 2023-07-14 12:55 | NUR ---
PT ARRIVED TO UNIT FROM PACU TRANSFERRED PT FROM BED TO [facility] USING SLIDER SHEET. PT DROWSY BUT ANSWERS QUESTIONS APPROPRIATELY. ORIENTED TO USE OF CALL LIGHT. KNITTER HELPER WITHIN REACH.
--- NOTE | 2023-07-14 17:49 | NUR ---
SUMMARY NO ACUTE CHANGES SINCE ARRIVING TO FLOOR FROM PACU. PT HAS SLEPT OFF AND ON T/O AFTERNOON. BECAME NAUSEATED THIS AFTERNOON, MEDICATED PER ORDERS W/ZOFRAN; PT REPORTS NAUSEA IMPROVED. PAIN ADEQUATELY CONTROLLED W/METALLURGICAL TECHNICIAN. METALLURGICAL TECHNICIAN AND CALL LIGHT IN REACH.
--- NOTE | 2023-07-14 19:12 | NUR ---
URINARY RETENTION PT VOIDED VERY SMALL AMOUNT. BS SHOWED >500. DISCUSSED STRAIGHT CATH WITH PT WHO REFUSED AT THIS TIME. SITTING ON EDGE OF BED ATTEMPTING TO VOID, HAS VOIDED SMALL AMOUNT, ATTEMTPING TO VOID MORE. BEDSIDE REPORT COMPLETED AND REITERATED TO PT IF HE CAN'T VOID, STRAIGHT CATH ADVISABLE. REPORT GIVEN TO LARRY SAMAYOA.
[2023-07-15 02:36] VITALS: BP 131/93
--- NOTE | 2023-07-15 02:51 | NUR ---
DR CONSULT CALL MADE TO DR ABRAHAM FOR PT URINARY RETENTION. PREVIOUS BLADDER SCAN OF 739. PT AGREED TO BE STRAIGHT-CATH'd AT THIS TIME DESPITE PREVIOUS DENIAL. WHEN PT ATTEMPTS TO URINATE HE STRAINS AT BEDSIDE & HR ELEVATES TO 140s. TELEPHONE ORDER FOR FLOMAX NOW & DAILY. PT DENIES PREVIOUS HISTORY OF URINARY PROBLEMS.
[2023-07-15 05:19] LABS: Bun/Creatinine Ratio 11.1 (12.0-20.0); Calcium, Blood 8.1 mg/dL (8.5-10.1); Creatinine, Blood 0.72 mg/dL (0.60-1.20); Potassium, Blood 3.6 mmol/L (3.5-5.5)
--- NOTE | 2023-07-15 06:26 | NUR ---
SHIFT SUMMARY POD 1 HERNIA REPAIR c MESH. O2 SAT >93% ON 1.5L NC, VSS WHEN PT SLEEPING, HR INCREASES WHEN PT ATTEMPTS TO URINATE. MIDLINE KIANA c SANGUINEOUS DRAINAGE NEAR UMBILICUS. ABDOMINAL BINDER IN PLACE. TOLERATING CLEARS, MINIMAL PO INTAKE OVERNIGHT. PT STRAIGHT CATH PER PREVIOUS NOTE, HAS NOT VOIDED SINCE. PT AMBULATES INDEPENDENTLY c SBA R/T LINES/CORDS. PT REPORTS PAIN TOLERABLE, MEDICATED c DILAUDID EVP STRATEGY. CALL LIGHT WITHIN REACH, BED IN LOWEST POSITION, WILL REPORT TO DAY RN.
[2023-07-15 07:03] VITALS: BP 133/94
[2023-07-15] MEDS ORDERED: TAMS.4ER PO (15:08)
[2023-07-15] MEDS ORDERED: Percocet 5-3251 EACH PO (15:08)
--- NOTE | 2023-07-15 16:17 | NUR ---
DISCHARGE SUMMARY PATIENT TOLERATING MEALS W/ NO REPORT OF N/V. VOIDING WELL AND PASSING FLATUS. ABDOMEN W/ MILD DESTENTION AND REPORT OF SLIGHT TENDERNESS. MIDLINE KIANA DRESSING INTACT W/ SCANT AMOUNT OF DRAINAGE. ABDOMINAL BINDER IN PLACE. IV REMOVED W/ CATH TIP INTACT, PATIENT TOLERATED WELL. BELONGINGS GATHERED, WRITTEN AND VERBAL DISCHARGE INSTRUCTIONS GIVEN. NARCOTIC SCRIPT ELECTRONICALLY SENT TO [facility] PER DR ARMENDARIZ. PATIENT WHEELED OUT IN WHEELCHAIR.
== END 2023-07-15 16:11 | disposition home or self-care (01) ==
LOC: ORSCMMR 06:08 → SURS 07:29 → ORSCMMR 07:29 → ORD 07:30 → ORSCMMR 07:30 → SURS 12:17
PROVIDERS: ADMIT Surgery
PROC: 0WQF0ZZ Repair Abdominal Wall, Open Approach (ICD-10-PCS; principal; 2023-07-14 07:30)
PROC: 0WUF0JZ Supplement Abdominal Wall with Synthetic Substitute, Open Approach (ICD-10-PCS; principal; 2023-07-14 07:30)
DX: K43.2 Incisional hernia without obstruction or gangrene (principal); M62.08 Separation of muscle (nontraumatic), other site; M70.71 Other bursitis of hip, right hip; Z87.891 Personal history of nicotine dependence; Z88.8 Allergy status to other drugs, medicaments and biological substances
CPT/HCPCS: 36415; 80048; 94762; A9270; C1781; J0360; J0690; J1170; J1650; J1885; J2250; J2405; J7120

== ENCOUNTER → 2023-08-09 | Outpatient (CLI) | payer OTHER ==
[~2023-08-09] MED LIST changes: +Percocet 5-3251 EACH PO; +TAMS.4ER PO
[2023-08-09 08:23] LABS: International Normalized Ratio 0.89; Prothrombin Time Results 9.4 Sec (9.7-11.5)
== END | disposition home or self-care (01) ==
LOC: LAB 07:43 → LAB SHORT 07:43
PROVIDERS: Surgery
DX: S30.1XXA Contusion of abdominal wall, initial encounter (principal)
CPT/HCPCS: 85610; 85730